=== PATIENT | male | born 1975 | race Caucasian/White ===

== ENCOUNTER 2016-03-23 13:15 | Inpatient (IN) | payer BC, OTHER ==
[~2016-03-23] VITALS: Ht 180.3 cm; Wt 112.6 kg
[2016-03-23] MEDS: PANTOPRAZOLE 40MG INJ (PROTONIX) (C9113) IV SCH (09:00)
[2016-03-23] MEDS ORDERED: ONDANSETRON 4MG/2ML VIAL (J2405) As Ordered ONE (13:59)
[2016-03-23] MEDS ORDERED: MORPHINE 4 MG/ML 1ML SYRINGE As Ordered ONE ×2 (13:59→18:15)
[2016-03-23 14:15] LABS: BASO % 0.4 % (0.0-1.0); EOS # 0.1 K/mm3 (0.0-0.50); EOS % 0.8 % (0.0-3.0); LARGE UNSTAINED CELL # 0.1 K/mm3 (0.0-0.4); LARGE UNSTAINED CELL % 0.8 % (0.0-4.0); LYMPH # 0.7 K/mm3 (1.5-4.5); LYMPH % 5.3 % (24.0-44.0); MEAN CORPUSCULAR HEMOGLOBIN 29.8 pg (27.0-33.0); MEAN CORPUSCULAR HGB CONC 32.7 g/dl (32.0-36.5); MEAN CORPUSCULAR VOLUME 91.2 fl (80.0-96.0); MONO # 0.7 K/mm3 (0.0-0.8); MONO % 5.2 % (0.0-5.0); NEUTROPHILS # 11.4 K/mm3 (1.8-7.7); NEUTROPHILS % 87.4 % (36.0-66.0); PLATELET COUNT, AUTOMATED 336 k/mm3 (150-450); RED CELL DISTRIBUTION WIDTH 12.9 % (11.5-14.5)
[2016-03-23 14:26] LABS: CONTROL LINE MONO INT CTR LINE PRESENT
[2016-03-23 14:32] LABS: ALBUMIN 3.8 GM/DL (3.2-5.2); ALBUMIN/GLOBULIN RATIO 1.27 (1.00-1.93); ALKALINE PHOSPHATASE 36 U/L (45-117); ALT/SGPT 29 U/L (12-78); AMYLASE 95 U/L (25-115); ANION GAP 9 MEQ/L (8-16); AST/SGOT 19 U/L (15-37); BILIRUBIN,DIRECT 0.2 MG/DL (0.0-0.2); BILIRUBIN,TOTAL 0.6 MG/DL (0.2-1.0); BLOOD UREA NITROGEN 17 MG/DL (7-18); CALCIUM LEVEL 8.5 MG/DL (8.5-10.1); CARBON DIOXIDE LEVEL 25 MEQ/L (21-32); CHLORIDE LEVEL 100 MEQ/L (98-107); CREATININE FOR GFR 1.49 MG/DL (0.70-1.30); GLOMERULAR FILTRATION RATE 55.6 (>60); GLUCOSE, FASTING 144 MG/DL (70-105); POTASSIUM SERUM 4.1 MEQ/L (3.5-5.1); SODIUM LEVEL 134 MEQ/L (136-145); TOTAL PROTEIN 6.8 GM/DL (6.4-8.2)
[2016-03-23] MEDS ORDERED: ISOVUE-370 76% 100ML VIAL (Q9967) As Ordered ONE (16:27)
[2016-03-23] MEDS ORDERED: BENZOIN TINCTURE 60 ML BTL (FLOOR STOCK) As Ordered ONE (16:31)
[2016-03-23] MEDS ORDERED: ESCI10TA2 PO (17:44)
[2016-03-23] MEDS ORDERED: IBUP80TA PO (17:44)
[2016-03-23] MEDS ORDERED: METH-107 PO (17:44)
[2016-03-23] MEDS ORDERED: MORPHINE 4 MG/ML 1ML SYRINGE IV PRN (18:15)
[2016-03-23] MEDS ORDERED: ONDANSETRON 4MG/2ML VIAL (J2405) IV PRN (18:15)
[2016-03-23] MEDS ORDERED: ACETAMINOPHEN TAB 650MG DOSE (2X325MG) PO PRN (18:15)
[2016-03-23] MEDS: NS 1,000 ML IV SCH (19:00)
--- NOTE | 2016-03-23 19:46 | EDDOCDS ---
Nurse's Notes [facility] Name: Ubaldo Garcia Age: 40 yrs Sex: Male : 1975 Arrival Date: 03/23/2016 Time: 13:15 Bed 3 Private MD: NO PRIMARY PHYSICIAN, . 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 Adult Sepsis Screening: The patient does not have new or worsening altered mentation. Patient's respiratory rate is less than 22. Systolic blood pressure is greater than 100. Patient has a qSOFA score of 0- Negative Sepsis Screen. Suicide/Homicide risk assessment- the patient denies having any suicidal and/or homicidal ideations and does not present with any other emotional, behavioral or mental health complaints. Status: Patient is not a service or work dispatcher or dependent. Transition of care: patient was not received from another setting of care. 13:41 Acuity: WILL Level 4 [facility] 13:41 Method Of Arrival: Walkin/Carried/Asstd [facility] 13:53 Acuity level changed due to complexity of care. srm 13:53 Acuity: WILL Level 3 srm Triage Assessment: 13:46 General: Appears in no apparent distress, uncomfortable, Behavior is appropriate for [facility] age, cooperative. Pain: Location: anterior aspect of right lateral abdomen and posterior aspect of right lateral abdomen Pain currently is 8 out of 10 on a pain scale. HIV screening NA for this visit Offered previously. Respiratory: Airway is patent Respiratory effort is even, unlabored, Respiratory pattern is regular, symmetrical. Musculoskeletal: Range of motion intact in all extremities. Historical: - Allergies: no known allergies; - Home Meds: 1. Lexapro 10 mg Oral tab 1 tab once daily (Last dose: 03/21/2016) 2. ibuprofen 800 mg Oral tab every 4 hours (Last dose: 03/23/2016 11:00) 3. methocarbamol 500 mg Oral tab as needed (Last dose: 03/23/2016 08:00) - PMHx: none; - PSHx: Hernia repair- Right inguinal; - Social history: Smoking status: Patient states former smoker of tobacco. No barriers to communication noted. - Family history: Not pertinent. - : The pt / caregiver states he / she is not on anticoagulants. Home medication list is obtained from. - Exposure Risk Screening:: None identified. Screenin:39 Screening information is obtained from the patient. Primary language is Urdu. Fall jam1 risk: No risks identified. Assistance ADL's: requires no assistance with activities of daily living. Abuse/DV Screen: The patient / caregiver reports he/she is: not in a situation that causes fear, pain or injury. Nutritional screening: No deficits noted. Exposure Risk Screening: None identified. Advance Directives: Currently, there is no health care proxy. There is no active DNR order. There is no living will. There is no Power of Community Support Specialist. Advance directive information has not previously been placed in an [facility] medical record. Further advance directive information is declined. home support is adequate. Assessment: 14:02 General: Appears in no apparent distress, uncomfortable, Behavior is appropriate for dsf age, cooperative. Pain: Location: anterior aspect of left lateral abdomen, left upper quadrant and left lower quadrant Pain currently is 8 out of 10 on a pain scale. Quality of pain is described as sharp, Pain began 2-3 days ago Aggravated by coughing, deep breathing and movement. Neurological: Level of Consciousness is awake, alert, Oriented to person, place, time. Cardiovascular: Capillary refill < 3 seconds Heart tones S1 S2 present. Respiratory: Airway is patent Respiratory effort is even, unlabored, Respiratory pattern is regular, symmetrical, Breath sounds are clear bilaterally. GI: Abdomen is non- distended Bowel sounds present X 4 quads. Abd is soft X 4 quads Abd is tender to palpation in left upper quadrant and left lower quadrant. Derm: Skin is pink, warm & dry. 15:02 Adult Sepsis Screening: The patient does not have new or worsening altered mentation. dsf Patient's respiratory rate is less than 22. Systolic blood pressure is greater than 100. Patient has a qSOFA score of 0- Negative Sepsis Screen. General: Appears in no apparent distress, Behavior is appropriate for age, cooperative. Pain: Location: left upper quadrant and left lower quadrant. Cardiovascular: Capillary refill < 3 seconds. Respiratory: Airway is patent Respiratory effort is even, unlabored, Respiratory pattern is regular, symmetrical. Derm: Skin is pink, warm & dry. 16:25 General: pt making snoring noises, pale, diaphoretic in wheel chair. lips pale, arms srm stiff left leg out straight and stiff. pt not responsive to nurse. voice. episode lasted approximately 30 secs before coming too. pt doesn't remember episodes. oxygen applied immediately. bp 135/62 hr 118 just after episodes. pt moved to room 11 in [facility] ed. after arriving to room 11 pt became pale and extremely diaphoretic in wheelchair , no unresponsiveness at this time. pt assisted to stretcher dr perera at bedside. 16:52 General: Appears in no apparent distress, comfortable, Behavior is cooperative. Pain: bcj Location: abdomen Pain currently is 5 out of 10 on a pain scale. Cardiovascular: Rhythm is sinus rhythm Chest pain is denied. Respiratory: Airway is patent Respiratory effort is even, unlabored, Respiratory pattern is regular. Derm: Skin is intact, Skin is clammy, Skin is pale, pink, Skin temperature is cool. 18:08 Adult Sepsis Screening: The patient does not have new or worsening altered mentation. bcj Patient's respiratory rate is less than 22. Systolic blood pressure is greater than 100. Patient has a qSOFA score of 0- Negative Sepsis Screen. General: Appears. 18:12 General: Appears in no apparent distress, comfortable, Behavior is cooperative. Pain: bcj Location: posterior aspect of left lateral abdomen and left lower quadrant. Cardiovascular: Rhythm is sinus rhythm. GI: Abdomen is flat, non- distended. Derm: Skin is pink, warm & dry. 19:16 General: Appears in no apparent distress, comfortable, Behavior is appropriate for age, mlc cooperative, pleasant. Pain: Location: anterior aspect of left lateral abdomen and posterior aspect of left lateral abdomen. Neurological: Level of Consciousness is awake, alert, obeys commands, Oriented to person, place, time. Cardiovascular: Capillary refill < 3 seconds Heart tones S1 S2 present Rhythm is sinus rhythm. Respiratory: Airway is patent Respiratory effort is even, unlabored, Respiratory pattern is regular, Breath sounds are clear bilaterally. GI: Abdomen is non- distended Bowel sounds present X 4 quads. Derm: Skin is pink, warm & dry. 19:43 General: Appears in no apparent distress, comfortable, Behavior is cooperative. Pain: mlc Pain currently is 5 out of 10 on a pain scale. Neurological: Level of Consciousness is awake, alert, Oriented to person, place, time. Respiratory: Airway is patent Respiratory effort is even, unlabored, Respiratory pattern is regular. Vital Signs: 13:18 BP 132 / 67; Pulse 108; Resp 18 S; Temp 96.3(O); Pulse Ox 93% on R/A; Weight 108.86 kg gr2 (R); Height 5 ft. 11 in. (180.34 cm) (R); Pain 8/10; 14:05 Pulse Ox 97% ; jam1 14:38 BP 110 / 62; Pulse 101; Resp 20; Temp 97.2; Pulse Ox 97% ; Pain 7/10; jam1 14:45 Pain 6/10; dsf 15:32 BP 132 / 67; Pulse 95; Resp 20; Temp 97.6; Pulse Ox 97% ; Pain 5/10; jam1 16:31 BP 149 / 86 (auto/); bcj 16:34 Pulse 90 MON; bcj 16:37 BP 153 / 64 (auto/); bcj 16:37 Pulse 84 MON; bcj 16:47 BP 146 / 72 (auto/); bcj 16:47 Pulse 80 MON; bcj 16:52 BP 135 / 58 (auto/); bcj 16:52 Pulse 80 MON; Pulse Ox 95% ; bcj 17:27 BP 130 / 78 (auto/); bcj 17:28 Pulse Ox 98% ; bcj 17:45 BP 133 / 79 (auto/); bcj 17:45 Pulse 92 MON; Pulse Ox 98% ; bcj 18:00 BP 142 / 74 (auto/); bcj 18:00 Pulse 94 MON; Pulse Ox 99% ; bcj 18:15 Pulse 104 MON; Pulse Ox 84% ; mlc 18:15 BP 141 / 65 (auto/); mlc 18:30 Pulse 99 MON; Pulse Ox 100% ; mlc 18:30 BP 146 / 65 (auto/); mlc 18:45 BP 152 / 75 (auto/); mlc 18:45 Pulse 100 MON; Pulse Ox 100% ; mlc 19:00 BP 128 / 69 (auto/); mlc 19:00 Pulse 102 MON; Pulse Ox 100% ; mlc 19:43 BP 137 / 70; Pulse 101; Resp 18; Temp 96.8(O); Pulse Ox 98% on R/A; Pain 5/10; mlc 13:18 Body Mass Index 33.47 (108.86 kg, 180.34 cm) gr2 Vitals: 13:18 Log In Time: March 23, 2016 at 13:18. gr2 ED Course: 13:17 Patient visited by Kevin Hughes. gr2 13:17 NO PRIMARY PHYSICIAN, . is Private Physician. gr2 13:17 Patient moved to Waiting gr2 13:21 Patient visited by Kevin Hughes. gr2 13:21 Patient moved to Pre RCE gr2 13:43 Triage Initiated cjh 13:46 ice applied. cj 13:50 Coni Mackey PA-C is PHCP. ef1 13:50 Ambrocio Perera MD is Attending Physician. ef1 13:50 Patient moved to I4 / M4 ef1 13:51 Patient visited by Coni Mackey PA-C. ef1 14:04 Inserted saline lock: 18 gauge in right antecubital area The patient tolerated the dsf procedure well. 14:04 Monoscreen Sent. dsf 14:04 Amylase Sent. dsf 14:04 Basic Metabolic Profile Sent. dsf 14:04 CBC with Diff Sent. dsf 14:04 Lipase Sent. dsf 14:05 Patient visited by Kelly Leal RN. dsf 14:05 Liver Profile Sent. dsf 14:06 Patient visited by Jocelynn Bynum RN. srm 14:40 Patient visited by Coni Mackey PA-C. ef1 14:52 Patient name changed from Ubaldo\S\M\S\Garcia\S\ to Ubaldo\S\ \S\Garcia. EDMS 14:53 [facility] Payment Agreement was scanned into [employer] and attached to record. lg 14:55 Patient visited by Coni Mackey PA-C. ef1 15:02 Patient visited by Kelly Leal RN. dsf 15:29 Patient visited by Coni Mackey PA-C. ef1 16:11 Patient visited by Coni Mackey PA-C. ef1 16:25 Patient moved to [facility] 16:29 Patient visited by Ambrocio Perera MD. br1 16:34 Resting quietly. awaiting re-evaluation by ER physician. bcj 16:34 The patient / caregiver is instructed regarding the plan of care and ED course. Patient bcj has correct armband on for positive identification. Bed in low position. Call light in reach. Side rails up X2. bullet swaging machine adjuster on. Pulse ox on. NIBP on. 16:34 EKG done. (by ED staff). Reviewed by Coni Mackey PA-C. nb2 16:34 IV is intact. bcj 16:35 Patient visited by Jocelynn Bynum, LUIZA. srm 16:36 Patient visited by Gianna Mcgrath. nb2 16:41 Patient visited by Varsha Ayala PCA. rs6 16:55 Patient visited by Lawrence Trejo, LUIZA. bcj 17:26 [facility] 18:14 No apparent distress. Resting quietly. Awaiting bed assignment. bcj 18:14 IV is intact. bcj 18:15 Patient visited by Lawrence Trejo, LUIZA. bcj 18:26 Jemal Cadet is Hospitalizing Provider. br1 19:16 Danielle Briceno,RN is Primary Nurse. mlc 19:16 No procedures done that require assistance. mlc 19:18 Patient visited by Danielle Briceno RN. mlc 19:37 Attending Physician role handed off by Ambrocio Perera MD cs11 19:37 Pollo Gracia DO is Attending Physician. cs11 Administered Medications: 13:52 CANCELLED (Duplicate Order): ketorolac 30 mg IVP once ef1 14:02 Drug: NS 0.9% 1000 ml [sodium chloride 0.9 % intravenous solution] Route: IV; Rate: srm bolus; Site: right antecubital; 14:02 Drug: Ondansetron 4 mg [ondansetron HCl 2 mg/mL intravenous solution (2 mL)] Route: srm IVP; Site: right antecubital; 14:03 Drug: morphine 4 mg [morphine 4 mg/mL intravenous cartridge (1 mL)] Route: IVP; Site: [facility] right antecubital; 14:45 Follow up: Pain 6/10 Adult; see charted VS dsf 16:50 Drug: NS 0.9% 1000 ml [sodium chloride 0.9 % intravenous solution] Route: IV; Rate: bcj bolus; Site: left antecubital; 18:21 Drug: morphine 4 mg [morphine 4 mg/mL intravenous cartridge (1 mL)] Route: IVP; Site: ja5 right antecubital; Intake: Order Results: Lab Order: Amylase; SPEC'M 03/23/16 14:00 Test: AMYLASE; Value: 95; Range: 25-115; Units: U/L; Status: F Test: TROPONIN I; Range: < 0.10; Units: NG/ML; Status: I Lab Order: Basic Metabolic Profile; SPEC'M 03/23/16 14:00 Test: GLUCOSE, FASTING; Value: 144; Range: 70-105; Abnormal: Above high normal; Units: MG/DL; Status: F Test: BLOOD UREA NITROGEN; Value: 17; Range: 7-18; Units: MG/DL; Status: F Test: CREATININE FOR GFR; Value: 1.49; Range: 0.70-1.30; Abnormal: Above high normal; Units: MG/DL; Status: F Test: SODIUM LEVEL; Range: 136-145; Units: MEQ/L; Status: I Test: POTASSIUM SERUM; Range: 3.5-5.1; Units: MEQ/L; Status: I Test: CHLORIDE LEVEL; Range: 98-107; Units: MEQ/L; Status: I Test: CARBON DIOXIDE LEVEL; Range: 21-32; Units: MEQ/L; Status: I Test: ANION GAP; Range: 8-16; Units: MEQ/L; Status: I Test: CALCIUM LEVEL; Range: 8.5-10.1; Units: MG/DL; Status: I Test: GLOMERULAR FILTRATION RATE; Value: 55.6; Range: >60; Abnormal: Below low normal; Status: F Test: SODIUM LEVEL; Value: 134; Range: 136-145; Abnormal: Below low normal; Units: MEQ/L; Status: F Test: POTASSIUM SERUM; Value: 4.1; Range: 3.5-5.1; Units: MEQ/L; Status: F Test: CHLORIDE LEVEL; Value: 100; Range: 98-107; Units: MEQ/L; Status: F Test: CARBON DIOXIDE LEVEL; Value: 25; Range: 21-32; Units: MEQ/L; Status: F Test: ANION GAP; Value: 9; Range: 8-16; Units: MEQ/L; Status: F Test: CALCIUM LEVEL; Value: 8.5; Range: 8.5-10.1; Units: MG/DL; Status: F Test Note: ; Units are mL/min/1.73 m2 Chronic Kidney Disease Staging per NKF: Stage I & II GFR >=60 Normal to Mildly Decreased Stage III GFR 30-59 Moderately Decreased Stage IV GFR 15-29 Severely Decreased Stage V GFR <15 Very Little GFR Left ESRD GFR <15 on [employer] Lab Order: CBC with Diff; SPEC'M 03/23/16 14:00 Test: WHITE BLOOD COUNT; Value: 13.0; Range: 4.0-10.0; Abnormal: Above high normal; Units: K/mm3; Status: F Test: RED BLOOD COUNT; Value: 4.30; Range: 4.30-6.10; Units: M/mm3; Status: F Test: HEMOGLOBIN; Value: 12.8; Range: 14.0-18.0; Abnormal: Below low normal; Units: g/dl; Status: F Test: HEMATOCRIT; Value: 39.2; Range: 42.0-52.0; Abnormal: Below low normal; Units: %; Status: F Test: MEAN CORPUSCULAR VOLUME; Value: 91.2; Range: 80.0-96.0; Units: fl; Status: F Test: MEAN CORPUSCULAR HEMOGLOBIN; Value: 29.8; Range: 27.0-33.0; Units: pg; Status: F Test: MEAN CORPUSCULAR HGB CONC; Value: 32.7; Range: 32.0-36.5; Units: g/dl; Status: F Test: RED CELL DISTRIBUTION WIDTH; Value: 12.9; Range: 11.5-14.5; Units: %; Status: F Test: PLATELET COUNT, AUTOMATED; Value: 336; Range: 150-450; Units: k/mm3; Status: F Test: NEUTROPHILS %; Value: 87.4; Range: 36.0-66.0; Abnormal: Above high normal; Units: %; Status: F Test: LYMPH %; Value: 5.3; Range: 24.0-44.0; Abnormal: Below low normal; Units: %; Status: F Test: MONO %; Value: 5.2; Range: 0.0-5.0; Abnormal: Above high normal; Units: %; Status: F Test: EOS %; Value: 0.8; Range: 0.0-3.0; Units: %; Status: F Test: BASO %; Value: 0.4; Range: 0.0-1.0; Units: %; Status: F Test: LARGE UNSTAINED CELL %; Value: 0.8; Range: 0.0-4.0; Units: %; Status: F Test: NEUTROPHILS #; Value: 11.4; Range: 1.8-7.7; Abnormal: Above high normal; Units: K/mm3; Status: F Test: LYMPH #; Value: 0.7; Range: 1.5-4.5; Abnormal: Below low normal; Units: K/mm3; Status: F Test: MONO #; Value: 0.7; Range: 0.0-0.8; Units: K/mm3; Status: F Test: EOS #; Value: 0.1; Range: 0.0-0.50; Units: K/mm3; Status: F Test: BASO #; Value: 0.0; Range: 0.0-0.2; Units: K/mm3; Status: F Test: LARGE UNSTAINED CELL #; Value: 0.1; Range: 0.0-0.4; Units: K/mm3; Status: F Lab Order: Lipase; SPEC' 03/23/16 14:00 Test: LIPASE; Value: 259; Range: 73-393; Units: U/L; Status: F Lab Order: Liver Profile; [facility]' 03/23/16 14:00 Test: AST/SGOT; Value: 19; Range: 15-37; Units: U/L; Status: F Test: ALT/SGPT; Value: 29; Range: 12-78; Units: U/L; Status: F Test: ALKALINE PHOSPHATASE; Value: 36; Range: 45-117; Abnormal: Below low normal; Units: U/L; Status: F Test: BILIRUBIN,TOTAL; Value: 0.6; Range: 0.2-1.0; Units: MG/DL; Status: F Test: BILIRUBIN,DIRECT; Value: 0.2; Range: 0.0-0.2; Units: MG/DL; Status: F Test: TOTAL PROTEIN; Value: 6.8; Range: 6.4-8.2; Units: GM/DL; Status: F Test: ALBUMIN; Value: 3.8; Range: 3.2-5.2; Units: GM/DL; Status: F Test: ALBUMIN/GLOBULIN RATIO; Value: 1.27; Range: 1.00-1.93; Status: F Lab Order: Monoscreen; SPEC'M 03/23/16 14:00 Test: MONO SCRN; Value: NEGATIVE; Range: NEGATIVE; Status: F Lab Order: TROPONIN; SPEC'M 03/23/16 14:00 Test: TROPONIN I; Value: < 0.02; Range: < 0.10; Units: NG/ML; Status: F Test Note: ; Troponin I Reference Interval for [employer] LOCI: 99th Percentile= 0.00-0.045 ng/ml Risk Stratification: <= 0.10 ng/ml Decreased Risk for Adverse Clinical Events. 0.10-1.50 ng/ml Increased Risk for Adverse Clinical Events. Evaluation of additional criterion and/or repeat testing in 2-6 hours is suggested to rule out myocardial damage. >= 1.50 ng/ml Indicative of Myocardial Injury. Outcome: 18:26 Decision to Hospitalize by Provider. br1 19:16 CT Study completed. [facility] 19:38 Discharge Assessment: Patient awake, alert and oriented x 3. No cognitive and/or mlc functional deficits noted. Patient verbalized understanding of disposition instructions. patient administered narcotics - yes. Patient was admitted to the hospital or transferred to another facility. The following High Risk Discharge criteria are identified: None. Admitted to ICU accompanied by nurse, accompanied by tech, via stretcher, on monitor, with chart. Condition: stable. Admission hand-off: Report called to LUIZA Torre. Property :Personal belongings accompany Pt. 19:45 Patient left the ED. [facility] Signatures: Dispatcher [employer] EDLawrence Medrano RN RN bcj Michelson, Staci, RN RN srm Murphy, Jane, [employer] jam1 Flaco Cardenas, Reg Reg lg Ambrocio Perera MD MD br1 Coni Mackey, PA-C PA-C efKelly Lara,Xochitl Prasad RN, RN RN pml Hafner, Jane, RN RN [facility] Vishal, Pollo Huff, DO DO cs11 Kevin Hughes gr2 Danielle Briceno RN RN [facility] Varsha Ayala, [employer]ER [employer] rs6 Gianna Mcgrath nb2 Rubia Ortez,RN RN ja5 Corrections: (The following items were deleted from the chart) 16:41 16:25 General: pt making snoring noises, pale, diaphoretic in wheel chair. ;lips pale. srm pt not responsive to nurse. voice. episode lasted approximately 30 secs before coming too. pt doesn't remember epsidoe. oxygen applied immediately. bp 135/62 hr 118 just after episodes. pt moved to room 11 in [facility]. after arriving to room 11 pt became pale and extremely diaphoretic in wheelchair , no unresponsiveness at this time. pt assisted to stretcher dr perera at bedside. srm 18:32 16:50 TROPONIN+LAB sent. lyudmilaj EDMS MTDD
--- NOTE | 2016-03-23 19:46 | EDDOCDS ---
Physician Documentation [facility] Name: Ubaldo Garcia Age: 40 yrs Sex: Male : 1975 Arrival Date: 03/23/2016 Time: 13:15 Bed 3 Private MD: NO PRIMARY PHYSICIAN, . Disposition: 03/23/16 18:26 Hospitalization ordered by Jemal Cadet for Inpatient Admission. Preliminary diagnosis is Disorders of retroperitoneum - Retroperitoneal and flank hematoma. - Bed requested for M ICU. - Status is Inpatient Admission. mlc - Condition is Stable. - Problem is new. - Symptoms are unchanged. Historical: - Allergies: no known allergies; - Home Meds: 1. Lexapro 10 mg Oral tab 1 tab once daily (Last dose: 03/21/2016) 2. ibuprofen 800 mg Oral tab every 4 hours (Last dose: 03/23/2016 11:00) 3. methocarbamol 500 mg Oral tab as needed (Last dose: 03/23/2016 08:00) - PMHx: none; - PSHx: Hernia repair- Right inguinal; - Social history: Smoking status: Patient states former smoker of tobacco. No barriers to communication noted. - Family history: Not pertinent. - : The pt / caregiver states he / she is not on anticoagulants. Home medication list is obtained from. - Exposure Risk Screening:: None identified. Vital Signs: 03/23 13:18 BP 132 / 67; Pulse 108; Resp 18 S; Temp 96.3(O); Pulse Ox 93% on R/A; Weight 108.86 kg gr2 / 240 lbs (R); Height 5 ft. 11 in. (180.34 cm) (R); Pain 8/10; 14:05 Pulse Ox 97% ; jam1 14:38 BP 110 / 62; Pulse 101; Resp 20; Temp 97.2; Pulse Ox 97% ; Pain 7/10; jam1 14:45 Pain 6/10; dsf 15:32 BP 132 / 67; Pulse 95; Resp 20; Temp 97.6; Pulse Ox 97% ; Pain 5/10; jam1 16:31 BP 149 / 86 (auto/); bcj 16:34 Pulse 90 MON; bcj 16:37 BP 153 / 64 (auto/); bcj 16:37 Pulse 84 MON; bcj 16:47 BP 146 / 72 (auto/); bcj 16:47 Pulse 80 MON; bcj 16:52 BP 135 / 58 (auto/); bcj 16:52 Pulse 80 MON; Pulse Ox 95% ; bcj 17:27 BP 130 / 78 (auto/); bcj 17:28 Pulse Ox 98% ; bcj 17:45 BP 133 / 79 (auto/); bcj 17:45 Pulse 92 MON; Pulse Ox 98% ; bcj 18:00 BP 142 / 74 (auto/); bcj 18:00 Pulse 94 MON; Pulse Ox 99% ; bcj 18:15 Pulse 104 MON; Pulse Ox 84% ; mlc 18:15 BP 141 / 65 (auto/); mlc 18:30 Pulse 99 MON; Pulse Ox 100% ; mlc 18:30 BP 146 / 65 (auto/); mlc 18:45 BP 152 / 75 (auto/); mlc 18:45 Pulse 100 MON; Pulse Ox 100% ; mlc 19:00 BP 128 / 69 (auto/); mlc 19:00 Pulse 102 MON; Pulse Ox 100% ; mlc 19:43 BP 137 / 70; Pulse 101; Resp 18; Temp 96.8(O); Pulse Ox 98% on R/A; Pain 5/10; mlc 13:18 Body Mass Index 33.47 (108.86 kg, 180.34 cm) gr2 MDM: 13:52 NS 0.9% 1000 ml IV at bolus once ordered. ef1 13:52 Ondansetron 4 mg IVP once ordered. ef1 13:52 IV Saline Lock ordered. ef1 13:52 Undress patient appropriately for examination ordered. ef1 13:53 Amylase Ordered. EDMS 13:53 Basic Metabolic Profile Ordered. EDMS 13:53 CBC with Diff Ordered. EDMS 13:53 Lipase Ordered. EDMS 13:53 Liver Profile Ordered. EDMS 13:53 Monoscreen Ordered. EDMS 13:53 CT ABD & PELVIS: No Contrast Ordered. EDMS 13:53 morphine 4 mg IVP once ordered. ef1 13:53 Pulse ox spot check ordered. ef1 13:53 NOTHING BY MOUTH+DIET ordered. EDMS 13:54 Rib Unilat W/PA Chest Only Ordered. EDMS 14:17 Financial registration complete. lg 14:47 Basic Metabolic Profile Reviewed. ef1 14:47 CBC with Diff Reviewed. ef1 14:47 Liver Profile Reviewed. ef1 14:47 Amylase Reviewed. ef1 14:47 Lipase Reviewed. ef1 14:47 Monoscreen Reviewed. ef1 14:53 [facility] [place] Payment Agreement was scanned into [employer] and attached to record. lg 16:14 CT Chest With Contrast Ordered. EDMS 16:14 CT ABD & PELVIS: IV Contrast Only Ordered. EDMS 16:19 morphine 4 mg IVP once ordered. ef1 16:28 ECG WITH READING ER PHYS+CARDIAG ordered. EDMS 16:33 NS 0.9% 1000 ml IV at bolus once ordered. br1 16:34 Table Games Dual Rate Supervisor/Pulse Ox/q 30 min VS ordered. br1 17:11 Type & Screen Ordered. EDMS 17:11 Type and Cross, Packed Cells Ordered. EDMS 17:27 ED course: Assumed care of patient. Normotemsive, feeling better at this time. br1 Discussed with Dr. Cadet imaging findings. Being bolused with normal saline. Dr. Cadet recommends holding on blood transfusion at this time, on his way to see patient.. 17:31 BED REQUEST+ADM ordered. EDMS 18:29 Admission / Observation Status ordered. EDMS 18:29 CLEAR LIQUIDS DIET ordered. EDMS 18:30 COMPLETE BLOOD COUNT Ordered. EDMS 18:32 TROPONIN Ordered. EDMS 19:33 COMPLETE BLOOD COUNT Ordered. EDMS 19:33 BASIC METABOLIC PROFILE Ordered. EDMS Administered Medications: 13:52 CANCELLED (Duplicate Order): ketorolac 30 mg IVP once ef1 14:02 Drug: NS 0.9% 1000 ml [sodium chloride 0.9 % intravenous solution] Route: IV; Rate: srm bolus; Site: right antecubital; 14:02 Drug: Ondansetron 4 mg [ondansetron HCl 2 mg/mL intravenous solution (2 mL)] Route: srm IVP; Site: right antecubital; 14:03 Drug: morphine 4 mg [morphine 4 mg/mL intravenous cartridge (1 mL)] Route: IVP; Site: [facility] right antecubital; 14:45 Follow up: Pain 6/10 Adult; see charted VS dsf 16:50 Drug: NS 0.9% 1000 ml [sodium chloride 0.9 % intravenous solution] Route: IV; Rate: bcj bolus; Site: left antecubital; 18:21 Drug: morphine 4 mg [morphine 4 mg/mL intravenous cartridge (1 mL)] Route: IVP; Site: [facility] right antecubital; Signatures: Dispatcher [employer] EDLawrence Medrano, RN RN Flaco Moss, Ambrocio Amaral lg, MD MD br1 Coni Mackey, JOEL PANatty ef1 Margi FrostRN RN [facility] Danielle Briceno RN RN mlc Andrews, Steven, RN RN sa Michelson, Staci RN srm Fuller, Desiree RN dsf Anderson, Jessica RN ja5 The chart was reviewed and I authenticate all verbal orders and agree with the evaluation and treatment provided.Corrections: (The following items were deleted from the chart) 13:52 13:52 ketorolac 30 mg IVP once ordered. ef1 ef1 17:26 17:16 Transfuse PRBC's 2 units, ensure PRBCs ordered in lab ordered. br1 br1 18:32 16:26 TROPONIN+LAB ordered. EDMS EDMS 19:31 18:29 TYPE & SCREEN ordered. EDMS EDMS Attachments: 14:53 [facility] [place] Payment Agreement lg MTDD
[2016-03-23 20:00] VITALS: BP 127/56
[2016-03-23] MEDS: ESCITALOPRAM OXALATE 10 MG TAB (LEXAPRO) PO SCH (20:38)
[2016-03-23] MEDS: DOCUSATE SODIUM 100 MG CAP PO SCH (20:38)
[2016-03-23 22:00] VITALS: BP 129/59
[2016-03-23 22:15] LABS: MEAN CORPUSCULAR HEMOGLOBIN 30.3 pg (27.0-33.0); MEAN CORPUSCULAR HGB CONC 33.1 g/dl (32.0-36.5); MEAN CORPUSCULAR VOLUME 91.7 fl (80.0-96.0); WHITE BLOOD COUNT 18.9 K/mm3 (4.0-10.0)
[2016-03-24] VITALS (13 sets, daily range): BP systolic 122–144; BP diastolic 58–74
[2016-03-24] MEDS: MORPHINE 2 MG/ML 1ML SYRINGE IV PRN ×3 (00:05→22:12)
[2016-03-24] MEDS: NS 1,000 ML IV SCH (01:48)
[2016-03-24 05:05] LABS: MEAN CORPUSCULAR HGB CONC 33.1 g/dl (32.0-36.5); MEAN CORPUSCULAR VOLUME 90.6 fl (80.0-96.0); RED CELL DISTRIBUTION WIDTH 13.1 % (11.5-14.5); WHITE BLOOD COUNT 14.6 K/mm3 (4.0-10.0)
[2016-03-24 05:07] LABS: ANION GAP 9 MEQ/L (8-16); BLOOD UREA NITROGEN 15 MG/DL (7-18); CALCIUM LEVEL 7.4 MG/DL (8.5-10.1); CARBON DIOXIDE LEVEL 24 MEQ/L (21-32); CHLORIDE LEVEL 103 MEQ/L (98-107); CREATININE FOR GFR 1.36 MG/DL (0.70-1.30); GLOMERULAR FILTRATION RATE > 60.0 (>60); GLUCOSE, FASTING 112 MG/DL (70-105); POTASSIUM SERUM 4.1 MEQ/L (3.5-5.1); SODIUM LEVEL 136 MEQ/L (136-145)
[2016-03-24] MEDS: DOCUSATE SODIUM 100 MG CAP PO SCH ×2 (08:49→21:30)
[2016-03-24] MEDS: PANTOPRAZOLE 40MG INJ (PROTONIX) (C9113) IV SCH (08:50)
--- NOTE | 2016-03-24 08:51 | REP ---
CT study of the chest with IV contrast: History: Trauma. CT contrast dose: 100 ml of Isovue [address] findings: The lung windows show no evidence of pneumothorax. There is a small left pleural effusion consistent with hydrothorax or hemothorax on the left side. There is some pericardial thickening inferiorly consistent with a small pericardial effusion. Some edema or infiltration of the epicardial fat is observed. No mediastinal hematoma is seen. The thoracic aorta enhances homogeneously and is normal in caliber and contour. No pulmonary arterial defect or other vascular abnormality is observed. There is a large left flank and left retroperitoneal hematoma displacing the kidney supero-medially and extending off the bottom edge of the imaging field of view. There is some hyperdense material within the central portion of the hematoma at the bottom of the imaging field of view consistent with active extravasation of contrast opacified blood. Bone window settings demonstrate an intact bony calvarium. No rib or other fracture is seen. The spleen appears to be intact. There is extraperitoneal blood extending or dissecting along the diaphragmatic root into the diaphragm itself. There may be some hemoperitoneum as well in the left upper quadrant. No free air is appreciated. Impression: Large left flank, predominantly extraperitoneal hematoma with active extravasation of contrast opacified blood (evidence of active bleeding). There is edema in the epicardial fat and a small amount of fluid is seen in the pericardium. No pulmonary contusion is seen. There is a small left pleural effusion. No other intrathoracic abnormality. Signed by Elias Salazar MD 03/24/2016 09:05 A
--- NOTE | 2016-03-24 08:55 | REP ---
CT study of the abdomen and pelvis with IV but without oral contrast: History: Trauma. CT contrast dose: 100 ml of Isovue 370 is administered. Comparison is made with the study done earlier without contrast. CT findings: There is a very large hematoma in the left flank, extraperitoneal and retroperitoneal extension. There is pericolic gutter fluid consistent with some degree of hemoperitoneum as well. There is evidence of active extravasation of contrast opacified blood within the hematoma in the left flank. Kidney is displaced anteriorly and superiorly. Hematoma extends along the pelvic sidewall displacing the urinary bladder to the right. There is a small quantity of hemoperitoneum in the right lower quadrant. There is some fluid in the space of Retzius between the urinary bladder and the anterior abdominal wall. There are inguinal hernia clips on the right. No hepatic or splenic laceration is seen. No adrenal lesion is observed. The kidneys enhance symmetrically and no renal laceration is seen. The gallbladder is unremarkable. Bone window settings show no pelvic, hip, lumbar spine fracture. No rib fracture is seen. The hematoma extends over a craniocaudal span of approximately 32 cm. It measures 16 cm anterior to posterior by 18.5 cm medial to lateral. Impression: 32 x 18 x 16 cm hematoma in the left flank, left retroperitoneum, and left pelvic sidewall region. There is active extravasation at the level of the bottom of the rib cage in the top of the hematoma. The abdominal viscera appear intact, although there is displacement of the left kidney and urinary bladder. There is a small quantity of hemoperitoneum. No fracture is seen. Signed by Elias Salazar MD 03/24/2016 09:05 A
--- NOTE | 2016-03-24 11:11 | HPE ---
DATE OF ADMISSION: 03/23/2016 ADMISSION DIAGNOSIS: Extensive retroperitoneal and abdominal wall hematoma, spontaneous, associated with power lifting. 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 On the past Friday, that would be March 17, he noticed what he described as a little tweak in the flank about at the edge of the rib cage. He described this as a sensation of relatively mild muscle pull while lifting and so he laid off his exercise program for a day or two. He was doing some heavy lifting on evening, March 21. He reports that he was well warmed up and was in the third set of repetitions when he felt a definite pull and felt something give in his left flank at the inferior edge of his rib cage. He stopped lifting at that point. He went home and used some warm compresses or cold compresses and some Bengay and rested. On Friday, he had some persistent discomfort in his left flank and today the he noted more pain. This started in the morning with pain that extended up and down his left flank and also down into his left lower quadrant. Later in the day when he tried getting off the sofa, he noticed a lot more discomfort. He presented to the emergency department at 01:15 in the afternoon. He was evaluated with some basic blood work. He was mildly tachycardiac when he first presented. He had a CT scan of the abdomen and pelvis which showed a definite hematoma involving the left flank muscles. This extended somewhat into the retroperitoneum posteriorly and also tracked down through the abdominal wall toward the pelvis. He subsequently had a CT scan of the chest as well as a CT scan of the abdomen and pelvis with contrast. This confirmed the hematoma. There was no sign of hematoma or free fluid up in the chest. On the CT with IV contrast, there was a small blush or actually a few small spots of contrast noted in the center of the hematoma in his left flank. The radiologist felt this was consistent with some ongoing bleeding. The patient developed some diaphoresis and had a transient episode of unresponsiveness while sitting in a wheelchair following his scan. I was asked to evaluate the patient and he is now being admitted to the intensive care unit for an attempt at nonoperative management of his large hematoma. ALLERGIES: The patient denies any drug allergies. HOME MEDICATIONS: Include Lexapro 10 mg by mouth once daily. He uses testosterone replacement therapy. He has been using some occasional ibuprofen 800 mg as needed and also has used some methocarbamol 500 mg that was provided for his dog, but was still available so he took one for his own discomfort. PAST MEDICAL HISTORY: Negative other than his hypotestosteronemia. PAST SURGICAL HISTORY: He has had a right inguinal hernia back in 2004. 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 He is a former smoker, but quit some years ago. He denies excessive alcohol. FAMILY HISTORY: Reveals no history of bleeding disorder or aneurysm. REVIEW OF SYSTEMS: Reveals no history of chest pain or palpitations. He denies any shortness of breath or wheezing. He has had no history of seizure, stroke or chronic severe headaches. He has no history of diabetes or hypothyroidism. He denies any abnormal bleeding following his hernia or when he had his wisdom teeth treated. He does report some minor musculoskeletal strains in the past associated with his hobby of lifting. There is no history of deep venous thrombosis (DVT) or pulmonary embolus. PHYSICAL EXAMINATION: Reveals a muscular man lying quietly on the stretcher in the emergency department. He has multiple tattoos of the upper extremities. He is alert, oriented and cooperative. His pulse is in the 80s. His most recent blood pressure is approximately 135 systolic. He was afebrile on presentation. His weight is listed as 109 kg with a height of 71 inches. Skin is warm and dry at this point. Sclerae are anicteric. Mucous membranes are moist. Neck is supple. Heart: Exam shows a regular rate and rhythm in the 80s. The lungs are clear to auscultation. The abdomen shows a muscular abdominal wall. He has some tenderness on palpation beginning in the region of the left lateral costal margin and extending down into the left lower quadrant at about the midclavicular line which seems to be his point of maximal tenderness now. There is no definite mass palpable, though there is some fullness of the abdominal wall on the left side relative to the right. He does have bowel sounds present. Extremities reveal palpable radial and pedal pulses bilaterally. He has no peripheral edema. LABORATORY DATA: His laboratory studies show a CBC with a white count of 13,000, hemoglobin of 13, hematocrit of 39 and a platelet count of 336,000. Differential count shows 87% neutrophils, 5% lymphocytes and 5% monocytes. His chemistry profile shows a sodium of 134, potassium 4.1, chloride 100, CO2 of 25, BUN of 17, creatinine 1.49 and glucose of 144. Liver function tests are normal with an amylase and lipase that are also normal. I did review the patient's CT scan, both the noncontrast and contrast versions of the abdomen and pelvis as well as the CT scan of chest. He certainly has a large hematoma. There is some contrast identified in the upper portion of the hematoma. No fractures were seen. The lung spivey are clear on the CT scan of the chest. IMPRESSION: Large spontaneous retroperitoneal and abdominal wall hematoma secondary to injury from weight lifting. PLAN: The patient clearly has a large hematoma. I would estimate that there is probably a liter or more of blood extravasated into the abdominal wall. It is difficult to estimate the volume of blood loss given the very irregular boundaries and shape. He did have an episode of transient loss of consciousness and diaphoresis while sitting in a wheelchair suggestive of intravascular volume depletion; though when he was tested immediately post this incident his blood pressure was good. I have recommended to the patient that he be admitted to the hospital for close monitoring. He will be placed in the intensive care unit where his vital signs can be more closely monitored. He will receive continuing hydration with IV fluid. As he has not been nauseous I will allow him to take some clear liquids as tolerated. I will keep him on bed rest. We will use thromboembolism deterrents (TEDs) and sequentials for DVT prophylaxis as in the face of potential active bleeding, pharmacologic prophylaxis would be contraindicated. He will be provided analgesics as needed. Hopefully his bleeding will stop before there is any need for transfusion of blood or blood products. He was counseled that transfusion may be necessary and that if he shows evidence of continued bleeding we may even have to consider a direct exploration of his hematoma. KALYANI
--- NOTE | 2016-03-24 13:07 | ECGEPIP ---
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
[2016-03-24] MEDS: SLF 3 ML SYR IV SCH ×2 (14:00→21:30)
[2016-03-24] MEDS ORDERED: SLF 3 ML SYR IV PRN (14:00)
[2016-03-24 18:28] LABS: MEAN CORPUSCULAR HGB CONC 32.7 g/dl (32.0-36.5); MEAN CORPUSCULAR VOLUME 91.7 fl (80.0-96.0); RED CELL DISTRIBUTION WIDTH 13.4 % (11.5-14.5); WHITE BLOOD COUNT 11.4 K/mm3 (4.0-10.0)
[2016-03-24 18:35] LABS: INR 1.01
[2016-03-24 19:06] LABS: COLLAGEN ADP 134 SECONDS (56-103)
--- NOTE | 2016-03-24 20:03 | REP ---
CT of the abdomen and pelvis without contrast, 03/23/16 Indication: Trauma. The patient was lifting weights and felt a pop within the left side of the abdomen Comparison P A chest with left rib series also performed 03/23/16 and was negative Technique: 3 mm spiral axial sections performed through the abdomen and pelvis without IV or oral contrast Findings: Heterogeneous low-density material seen in the region of the left cardiophrenic angle may represent epicardial fat pad with an infiltrated appearance. The lung bases are clear bilaterally. The included portions of the ribs are without fracture. Visualized portions of the lower sternum and xyphoid are normal. Liver, spleen, pancreas, gallbladder, adrenal glands are normal. There is a large left abdominal wall hematoma which causes extrinsic impression upon the left peritoneal cavity. This hematoma measures approximately 13 cm AP by 8.3 cm transverse dimension by 26 cm cranial caudal dimension, and extends into the lower pelvis. This does cause mass effect upon the left kidney which is deviated medially and anteriorly. There is extensive retroperitoneal hematoma in the left side of the pelvis. The bladder is deviated to the right. The abdominal aorta is of normal course and caliber. Stomach small bowel are without obstruction. There is no free air. There is no evidence of lumbosacral spine fracture. Visualized portions of the lower thoracic spine are without fracture or displacement. The sacrum and coccyx are normal. SI joint are intact. The hips bilaterally and the bony pelvis are intact without fracture or displacement. Impression 1. Large left lateral abdominal wall hematoma with mass effect and extrinsic impression upon the left peritoneal cavity, and the left kidney . This hematoma measures 13.2 cm AP by 8.4 cm transverse by 26 cm cranial caudal dimension 2. Moderate retroperitoneal hematoma descends into the pelvis on the left . There is mass effect upon and rightward deviation of the bladder and left colon. 3. Probable infiltrated appearance within the epicardial fat within the left cardiophrenic angle. Recommend CT of the chest, abdomen and pelvis with dynamic IV contrast. Case discussed with MICKEY Mackey in ED. Signed by Ariana Jernigan MD 03/24/2016 07:54 P
--- NOTE | 2016-03-24 20:04 | REP ---
PA chest with left rib series 03/23/2016 Indication: Trauma Comparison: None Findings: The cardiomediastinal silhouette is normal. Lungs are clear bilaterally. The bones and soft tissues within normal limits. Left ribs and the thoracic spine are without fracture or deformity. Impression: no acute cardiopulmonary process. Unremarkable left rib series Signed by Ariana Jernigan MD 03/24/2016 07:56 P
[2016-03-24] MEDS: ESCITALOPRAM OXALATE 10 MG TAB (LEXAPRO) PO SCH (21:30)
[2016-03-25] VITALS (15 sets, daily range): BP systolic 140–183; BP diastolic 64–88
[2016-03-25] MEDS: MORPHINE 2 MG/ML 1ML SYRINGE IV PRN ×3 (02:22→08:17)
[2016-03-25 04:53] LABS: MEAN CORPUSCULAR HEMOGLOBIN 29.1 pg (27.0-33.0); MEAN CORPUSCULAR HGB CONC 31.7 g/dl (32.0-36.5); MEAN CORPUSCULAR VOLUME 91.7 fl (80.0-96.0); RED CELL DISTRIBUTION WIDTH 13.5 % (11.5-14.5); WHITE BLOOD COUNT 10.4 K/mm3 (4.0-10.0)
[2016-03-25] MEDS: SLF 3 ML SYR IV SCH ×3 (04:57→20:11)
[2016-03-25 04:59] LABS: ANION GAP 6 MEQ/L (8-16); BLOOD UREA NITROGEN 12 MG/DL (7-18); CALCIUM LEVEL 7.6 MG/DL (8.5-10.1); CARBON DIOXIDE LEVEL 28 MEQ/L (21-32); CHLORIDE LEVEL 104 MEQ/L (98-107); CREATININE FOR GFR 1.15 MG/DL (0.70-1.30); GLOMERULAR FILTRATION RATE > 60.0 (>60); GLUCOSE, FASTING 84 MG/DL (70-105); POTASSIUM SERUM 4.1 MEQ/L (3.5-5.1); SODIUM LEVEL 138 MEQ/L (136-145)
[2016-03-25] MEDS ORDERED: MORPHINE 4 MG/ML 1ML SYRINGE IV ONE (06:45)
[2016-03-25] MEDS: PANTOPRAZOLE 40MG INJ (PROTONIX) (C9113) IV SCH (08:18)
[2016-03-25] MEDS: DOCUSATE SODIUM 100 MG CAP PO SCH ×2 (08:18→20:10)
[2016-03-25] MEDS ORDERED: SENNA 8.6 MG TAB (SENOKOT) PO PRN (08:45)
[2016-03-25] MEDS ORDERED: NALOXONE INJ 0.4 MG/1 ML VIAL (J2310) IV PRN (09:00)
[2016-03-25] MEDS ORDERED: NALBUPHINE HCL 10 MG/ML AMP (J2300) IV PRN (09:00)
[2016-03-25] MEDS ORDERED: EPIDURAL/PCA KEYS XX PRN (09:00)
[2016-03-25] MEDS ORDERED: ONDANSETRON 4MG/2ML VIAL (J2405) IV PRN (09:00)
[2016-03-25] MEDS ORDERED: diphenhydrAMINE INJ 50MG/ML VIAL (J1200) IV PRN (09:00)
[2016-03-25] MEDS: MORPHINE PCA 1MG/ML 100ML CADD IV PRN (09:27)
[2016-03-25] MEDS: NS 1,000 ML IV SCH (09:27)
[2016-03-25] MEDS ORDERED: METOCLOPRAMIDE INJ 10MG/2ML VIAL (J2765) IV PRN (09:30)
[2016-03-25 19:37] LABS: MEAN CORPUSCULAR HEMOGLOBIN 29.9 pg (27.0-33.0); MEAN CORPUSCULAR HGB CONC 32.4 g/dl (32.0-36.5); MEAN CORPUSCULAR VOLUME 92.1 fl (80.0-96.0); RED CELL DISTRIBUTION WIDTH 15.1 % (11.5-14.5); WHITE BLOOD COUNT 21.5 K/mm3 (4.0-10.0)
[2016-03-25 19:56] LABS: ANION GAP 8 MEQ/L (8-16); BLOOD UREA NITROGEN 19 MG/DL (7-18); CALCIUM LEVEL 7.4 MG/DL (8.5-10.1); CARBON DIOXIDE LEVEL 26 MEQ/L (21-32); CHLORIDE LEVEL 101 MEQ/L (98-107); CREATININE FOR GFR 1.39 MG/DL (0.70-1.30); GLOMERULAR FILTRATION RATE > 60.0 (>60); GLUCOSE, FASTING 114 MG/DL (70-105); SODIUM LEVEL 135 MEQ/L (136-145)
[2016-03-25 19:57] LABS: POTASSIUM SERUM 5.3 MEQ/L (3.5-5.1)
[2016-03-25] MEDS: ESCITALOPRAM OXALATE 10 MG TAB (LEXAPRO) PO SCH (20:10)
--- NOTE | 2016-03-25 20:45 | EDDOCDS ---
Nurse's Notes [facility] Name: Ubaldo Garcia Age: 40 yrs Sex: Male : 1975 Arrival Date: 03/23/2016 Time: 13:15 Bed 3 Private MD: NO PRIMARY PHYSICIAN, . Diagnosis: Disorders of retroperitoneum-Retroperitoneal and flank hematoma Presentation: 03/23 13:41 Presenting complaint: Patient states: left external oblique pain started near ribs and [facility] now is all the way down, initially injured evening working out, squatting [phone]#. Adult Sepsis Screening: The patient does not have new or worsening altered mentation. Patient's respiratory rate is less than 22. Systolic blood pressure is greater than 100. Patient has a qSOFA score of 0- Negative Sepsis Screen. Suicide/Homicide risk assessment- the patient denies having any suicidal and/or homicidal ideations and does not present with any other emotional, behavioral or mental health complaints. Status: Patient is not a director social service or dependent. Transition of care: patient was not received from another setting of care. 13:41 Acuity: WILL Level 4 [facility] 13:41 Method Of Arrival: Walkin/Carried/Asstd [facility] 13:53 Acuity level changed due to complexity of care. srm 13:53 Acuity: WILL Level 3 srm Triage Assessment: 13:46 General: Appears in no apparent distress, uncomfortable, Behavior is appropriate for [facility] age, cooperative. Pain: Location: anterior aspect of right lateral abdomen and posterior aspect of right lateral abdomen Pain currently is 8 out of 10 on a pain scale. HIV screening NA for this visit Offered previously. Respiratory: Airway is patent Respiratory effort is even, unlabored, Respiratory pattern is regular, symmetrical. Musculoskeletal: Range of motion intact in all extremities. Historical: - Allergies: no known allergies; - Home Meds: 1. Lexapro 10 mg Oral tab 1 tab once daily (Last dose: 03/21/2016) 2. ibuprofen 800 mg Oral tab every 4 hours (Last dose: 03/23/2016 11:00) 3. methocarbamol 500 mg Oral tab as needed (Last dose: 03/23/2016 08:00) - PMHx: none; - PSHx: Hernia repair- Right inguinal; - Social history: Smoking status: Patient states former smoker of tobacco. No barriers to communication noted. - Family history: Not pertinent. - : The pt / caregiver states he / she is not on anticoagulants. Home medication list is obtained from. - Exposure Risk Screening:: None identified. Screenin:39 Screening information is obtained from the patient. Primary language is Slovak. Fall jam1 risk: No risks identified. Assistance ADL's: requires no assistance with activities of daily living. Abuse/DV Screen: The patient / caregiver reports he/she is: not in a situation that causes fear, pain or injury. Nutritional screening: No deficits noted. Exposure Risk Screening: None identified. Advance Directives: Currently, there is no health care proxy. There is no active DNR order. There is no living will. There is no Power of Party Supply Specialist. Advance directive information has not previously been placed in an [facility] medical record. Further advance directive information is declined. home support is adequate. Assessment: 14:02 General: Appears in no apparent distress, uncomfortable, Behavior is appropriate for dsf age, cooperative. Pain: Location: anterior aspect of left lateral abdomen, left upper quadrant and left lower quadrant Pain currently is 8 out of 10 on a pain scale. Quality of pain is described as sharp, Pain began 2-3 days ago Aggravated by coughing, deep breathing and movement. Neurological: Level of Consciousness is awake, alert, Oriented to person, place, time. Cardiovascular: Capillary refill < 3 seconds Heart tones S1 S2 present. Respiratory: Airway is patent Respiratory effort is even, unlabored, Respiratory pattern is regular, symmetrical, Breath sounds are clear bilaterally. GI: Abdomen is non- distended Bowel sounds present X 4 quads. Abd is soft X 4 quads Abd is tender to palpation in left upper quadrant and left lower quadrant. Derm: Skin is pink, warm & dry. 15:02 Adult Sepsis Screening: The patient does not have new or worsening altered mentation. dsf Patient's respiratory rate is less than 22. Systolic blood pressure is greater than 100. Patient has a qSOFA score of 0- Negative Sepsis Screen. General: Appears in no apparent distress, Behavior is appropriate for age, cooperative. Pain: Location: left upper quadrant and left lower quadrant. Cardiovascular: Capillary refill < 3 seconds. Respiratory: Airway is patent Respiratory effort is even, unlabored, Respiratory pattern is regular, symmetrical. Derm: Skin is pink, warm & dry. 16:25 General: pt making snoring noises, pale, diaphoretic in wheel chair. lips pale, arms srm stiff left leg out straight and stiff. pt not responsive to nurse. voice. episode lasted approximately 30 secs before coming too. pt doesn't remember episodes. oxygen applied immediately. bp 135/62 hr 118 just after episodes. pt moved to room 11 in [facility] ed. after arriving to room 11 pt became pale and extremely diaphoretic in wheelchair , no unresponsiveness at this time. pt assisted to stretcher dr perera at bedside. 16:52 General: Appears in no apparent distress, comfortable, Behavior is cooperative. Pain: bcj Location: abdomen Pain currently is 5 out of 10 on a pain scale. Cardiovascular: Rhythm is sinus rhythm Chest pain is denied. Respiratory: Airway is patent Respiratory effort is even, unlabored, Respiratory pattern is regular. Derm: Skin is intact, Skin is clammy, Skin is pale, pink, Skin temperature is cool. 18:08 Adult Sepsis Screening: The patient does not have new or worsening altered mentation. bcj Patient's respiratory rate is less than 22. Systolic blood pressure is greater than 100. Patient has a qSOFA score of 0- Negative Sepsis Screen. General: Appears. 18:12 General: Appears in no apparent distress, comfortable, Behavior is cooperative. Pain: bcj Location: posterior aspect of left lateral abdomen and left lower quadrant. Cardiovascular: Rhythm is sinus rhythm. GI: Abdomen is flat, non- distended. Derm: Skin is pink, warm & dry. 19:16 General: Appears in no apparent distress, comfortable, Behavior is appropriate for age, mlc cooperative, pleasant. Pain: Location: anterior aspect of left lateral abdomen and posterior aspect of left lateral abdomen. Neurological: Level of Consciousness is awake, alert, obeys commands, Oriented to person, place, time. Cardiovascular: Capillary refill < 3 seconds Heart tones S1 S2 present Rhythm is sinus rhythm. Respiratory: Airway is patent Respiratory effort is even, unlabored, Respiratory pattern is regular, Breath sounds are clear bilaterally. GI: Abdomen is non- distended Bowel sounds present X 4 quads. Derm: Skin is pink, warm & dry. 19:43 General: Appears in no apparent distress, comfortable, Behavior is cooperative. Pain: mlc Pain currently is 5 out of 10 on a pain scale. Neurological: Level of Consciousness is awake, alert, Oriented to person, place, time. Respiratory: Airway is patent Respiratory effort is even, unlabored, Respiratory pattern is regular. Vital Signs: 13:18 BP 132 / 67; Pulse 108; Resp 18 S; Temp 96.3(O); Pulse Ox 93% on R/A; Weight 108.86 kg gr2 (R); Height 5 ft. 11 in. (180.34 cm) (R); Pain 8/10; 14:05 Pulse Ox 97% ; jam1 14:38 BP 110 / 62; Pulse 101; Resp 20; Temp 97.2; Pulse Ox 97% ; Pain 7/10; jam1 14:45 Pain 6/10; dsf 15:32 BP 132 / 67; Pulse 95; Resp 20; Temp 97.6; Pulse Ox 97% ; Pain 5/10; jam1 16:31 BP 149 / 86 (auto/); bcj 16:34 Pulse 90 MON; bcj 16:37 BP 153 / 64 (auto/); bcj 16:37 Pulse 84 MON; bcj 16:47 BP 146 / 72 (auto/); bcj 16:47 Pulse 80 MON; bcj 16:52 BP 135 / 58 (auto/); bcj 16:52 Pulse 80 MON; Pulse Ox 95% ; bcj 17:27 BP 130 / 78 (auto/); bcj 17:28 Pulse Ox 98% ; bcj 17:45 BP 133 / 79 (auto/); bcj 17:45 Pulse 92 MON; Pulse Ox 98% ; bcj 18:00 BP 142 / 74 (auto/); bcj 18:00 Pulse 94 MON; Pulse Ox 99% ; bcj 18:15 Pulse 104 MON; Pulse Ox 84% ; mlc 18:15 BP 141 / 65 (auto/); mlc 18:30 Pulse 99 MON; Pulse Ox 100% ; mlc 18:30 BP 146 / 65 (auto/); mlc 18:45 BP 152 / 75 (auto/); mlc 18:45 Pulse 100 MON; Pulse Ox 100% ; mlc 19:00 BP 128 / 69 (auto/); mlc 19:00 Pulse 102 MON; Pulse Ox 100% ; mlc 19:43 BP 137 / 70; Pulse 101; Resp 18; Temp 96.8(O); Pulse Ox 98% on R/A; Pain 5/10; mlc 13:18 Body Mass Index 33.47 (108.86 kg, 180.34 cm) gr2 Vitals: 13:18 Log In Time: March 23, 2016 at 13:18. gr2 ED Course: 13:17 Patient visited by eKvin Hughes. gr2 13:17 NO PRIMARY PHYSICIAN, . is Private Physician. gr2 13:17 Patient moved to Waiting gr2 13:21 Patient visited by Kevin Hughes. gr2 13:21 Patient moved to Pre RCE gr2 13:43 Triage Initiated cjh 13:46 ice applied. cj 13:50 Coni Mackey PA-C is PHCP. ef1 13:50 Ambrocio Perera MD is Attending Physician. ef1 13:50 Patient moved to I4 / M4 ef1 13:51 Patient visited by Coni Mackey PA-C. ef1 14:04 Inserted saline lock: 18 gauge in right antecubital area The patient tolerated the dsf procedure well. 14:04 Monoscreen Sent. dsf 14:04 Amylase Sent. dsf 14:04 Basic Metabolic Profile Sent. dsf 14:04 CBC with Diff Sent. dsf 14:04 Lipase Sent. dsf 14:05 Patient visited by Kelly Leal RN. dsf 14:05 Liver Profile Sent. dsf 14:06 Patient visited by Jocelynn Bynum RN. srm 14:40 Patient visited by Coni Mackey PA-C. ef1 14:52 Patient name changed from Ubaldo\S\M\S\Garcia\S\ to Ubaldo\S\ \S\Garcia. EDMS 14:53 [facility] Payment Agreement was scanned into [employer] and attached to record. lg 14:55 Patient visited by Coni Mackey PA-C. ef1 15:02 Patient visited by Kelly Leal RN. dsf 15:29 Patient visited by Coni Mackey PA-C. ef1 16:11 Patient visited by Coni Mackey PA-C. ef1 16:25 Patient moved to [facility] 16:29 Patient visited by Ambrocio Perera MD. br1 16:34 Resting quietly. awaiting re-evaluation by ER physician. bcj 16:34 The patient / caregiver is instructed regarding the plan of care and ED course. Patient bcj has correct armband on for positive identification. Bed in low position. Call light in reach. Side rails up X2. accounting clerk on. Pulse ox on. NIBP on. 16:34 EKG done. (by ED staff). Reviewed by Coni Mackey PA-C. nb2 16:34 IV is intact. bcj 16:35 Patient visited by Jocelynn Bynum, LUIZA. srm 16:36 Patient visited by Gianna Mcgrath. nb2 16:41 Patient visited by Varsha Ayala PCA. rs6 16:55 Patient visited by Lawrence Trejo, RN. bcj 17:26 Patient moved to 3 pml 18:14 No apparent distress. Resting quietly. Awaiting bed assignment. bcj 18:14 IV is intact. bcj 18:15 Patient visited by Lawrence rTejo, LUIZA. bcj 18:26 Jemal Cadet is Hospitalizing Provider. br1 19:16 Danielle Briceno,RN is Primary Nurse. mlc 19:16 No procedures done that require assistance. mlc 19:18 Patient visited by Danielle Briceno RN. mlc 19:37 Attending Physician role handed off by Ambrocio Perera MD cs11 19:37 Pollo Gracia DO is Attending Physician. cs11 03/24 15:18 T-Sheet-- Draft Copy was scanned into [employer] and attached to record. kf3 16:59 Consents was scanned into [employer] and attached to record. kf3 17:00 ECG/EKG was scanned into [employer] and attached to record. kf3 Administered Medications: 03/23 13:52 CANCELLED (Duplicate Order): ketorolac 30 mg IVP once ef1 14:02 Drug: NS 0.9% 1000 ml [sodium chloride 0.9 % intravenous solution] Route: IV; Rate: srm bolus; Site: right antecubital; 14:02 Drug: Ondansetron 4 mg [ondansetron HCl 2 mg/mL intravenous solution (2 mL)] Route: srm IVP; Site: right antecubital; 14:03 Drug: morphine 4 mg [morphine 4 mg/mL intravenous cartridge (1 mL)] Route: IVP; Site: srm right antecubital; 14:45 Follow up: Pain 6/10 Adult; see charted VS dsf 16:50 Drug: NS 0.9% 1000 ml [sodium chloride 0.9 % intravenous solution] Route: IV; Rate: bcj bolus; Site: left antecubital; 18:21 Drug: morphine 4 mg [morphine 4 mg/mL intravenous cartridge (1 mL)] Route: IVP; Site: ja5 right antecubital; Attachments: 16:59 Consents kf3 Intake: Order Results: Lab Order: Amylase; SPEC'M 03/23/16 14:00 Test: AMYLASE; Value: 95; Range: 25-115; Units: U/L; Status: F Test: TROPONIN I; Range: < 0.10; Units: NG/ML; Status: I Lab Order: Basic Metabolic Profile; SPEC'M 03/23/16 14:00 Test: GLUCOSE, FASTING; Value: 144; Range: 70-105; Abnormal: Above high normal; Units: MG/DL; Status: F Test: BLOOD UREA NITROGEN; Value: 17; Range: 7-18; Units: MG/DL; Status: F Test: CREATININE FOR GFR; Value: 1.49; Range: 0.70-1.30; Abnormal: Above high normal; Units: MG/DL; Status: F Test: SODIUM LEVEL; Range: 136-145; Units: MEQ/L; Status: I Test: POTASSIUM SERUM; Range: 3.5-5.1; Units: MEQ/L; Status: I Test: CHLORIDE LEVEL; Range: 98-107; Units: MEQ/L; Status: I Test: CARBON DIOXIDE LEVEL; Range: 21-32; Units: MEQ/L; Status: I Test: ANION GAP; Range: 8-16; Units: MEQ/L; Status: I Test: CALCIUM LEVEL; Range: 8.5-10.1; Units: MG/DL; Status: I Test: GLOMERULAR FILTRATION RATE; Value: 55.6; Range: >60; Abnormal: Below low normal; Status: F Test: SODIUM LEVEL; Value: 134; Range: 136-145; Abnormal: Below low normal; Units: MEQ/L; Status: F Test: POTASSIUM SERUM; Value: 4.1; Range: 3.5-5.1; Units: MEQ/L; Status: F Test: CHLORIDE LEVEL; Value: 100; Range: 98-107; Units: MEQ/L; Status: F Test: CARBON DIOXIDE LEVEL; Value: 25; Range: 21-32; Units: MEQ/L; Status: F Test: ANION GAP; Value: 9; Range: 8-16; Units: MEQ/L; Status: F Test: CALCIUM LEVEL; Value: 8.5; Range: 8.5-10.1; Units: MG/DL; Status: F Test Note: ; Units are mL/min/1.73 m2 Chronic Kidney Disease Staging per NKF: Stage I & II GFR >=60 Normal to Mildly Decreased Stage III GFR 30-59 Moderately Decreased Stage IV GFR 15-29 Severely Decreased Stage V GFR <15 Very Little GFR Left ESRD GFR <15 on [employer] TECHNOLOGIST Lab Order: CBC with Diff; SPEC'M 03/23/16 14:00 Test: WHITE BLOOD COUNT; Value: 13.0; Range: 4.0-10.0; Abnormal: Above high normal; Units: K/mm3; Status: F Test: RED BLOOD COUNT; Value: 4.30; Range: 4.30-6.10; Units: M/mm3; Status: F Test: HEMOGLOBIN; Value: 12.8; Range: 14.0-18.0; Abnormal: Below low normal; Units: g/dl; Status: F Test: HEMATOCRIT; Value: 39.2; Range: 42.0-52.0; Abnormal: Below low normal; Units: %; Status: F Test: MEAN CORPUSCULAR VOLUME; Value: 91.2; Range: 80.0-96.0; Units: fl; Status: F Test: MEAN CORPUSCULAR HEMOGLOBIN; Value: 29.8; Range: 27.0-33.0; Units: pg; Status: F Test: MEAN CORPUSCULAR HGB CONC; Value: 32.7; Range: 32.0-36.5; Units: g/dl; Status: F Test: RED CELL DISTRIBUTION WIDTH; Value: 12.9; Range: 11.5-14.5; Units: %; Status: F Test: PLATELET COUNT, AUTOMATED; Value: 336; Range: 150-450; Units: k/mm3; Status: F Test: NEUTROPHILS %; Value: 87.4; Range: 36.0-66.0; Abnormal: Above high normal; Units: %; Status: F Test: LYMPH %; Value: 5.3; Range: 24.0-44.0; Abnormal: Below low normal; Units: %; Status: F Test: MONO %; Value: 5.2; Range: 0.0-5.0; Abnormal: Above high normal; Units: %; Status: F Test: EOS %; Value: 0.8; Range: 0.0-3.0; Units: %; Status: F Test: BASO %; Value: 0.4; Range: 0.0-1.0; Units: %; Status: F Test: LARGE UNSTAINED CELL %; Value: 0.8; Range: 0.0-4.0; Units: %; Status: F Test: NEUTROPHILS #; Value: 11.4; Range: 1.8-7.7; Abnormal: Above high normal; Units: K/mm3; Status: F Test: LYMPH #; Value: 0.7; Range: 1.5-4.5; Abnormal: Below low normal; Units: K/mm3; Status: F Test: MONO #; Value: 0.7; Range: 0.0-0.8; Units: K/mm3; Status: F Test: EOS #; Value: 0.1; Range: 0.0-0.50; Units: K/mm3; Status: F Test: BASO #; Value: 0.0; Range: 0.0-0.2; Units: K/mm3; Status: F Test: LARGE UNSTAINED CELL #; Value: 0.1; Range: 0.0-0.4; Units: K/mm3; Status: F Lab Order: Lipase; SPEC'M 03/23/16 14:00 Test: LIPASE; Value: 259; Range: 73-393; Units: U/L; Status: F Lab Order: Liver Profile; SPEC'M 03/23/16 14:00 Test: AST/SGOT; Value: 19; Range: 15-37; Units: U/L; Status: F Test: ALT/SGPT; Value: 29; Range: 12-78; Units: U/L; Status: F Test: ALKALINE PHOSPHATASE; Value: 36; Range: 45-117; Abnormal: Below low normal; Units: U/L; Status: F Test: BILIRUBIN,TOTAL; Value: 0.6; Range: 0.2-1.0; Units: MG/DL; Status: F Test: BILIRUBIN,DIRECT; Value: 0.2; Range: 0.0-0.2; Units: MG/DL; Status: F Test: TOTAL PROTEIN; Value: 6.8; Range: 6.4-8.2; Units: GM/DL; Status: F Test: ALBUMIN; Value: 3.8; Range: 3.2-5.2; Units: GM/DL; Status: F Test: ALBUMIN/GLOBULIN RATIO; Value: 1.27; Range: 1.00-1.93; Status: F Lab Order: Monoscreen; SPEC'M 03/23/16 14:00 Test: MONO SCRN; Value: NEGATIVE; Range: NEGATIVE; Status: F Lab Order: TROPONIN; SPEC'M 03/23/16 14:00 Test: TROPONIN I; Value: < 0.02; Range: < 0.10; Units: NG/ML; Status: F Test Note: ; Troponin I Reference Interval for [employer] [place] LOCI: 99th Percentile= 0.00-0.045 ng/ml Risk Stratification: <= 0.10 ng/ml Decreased Risk for Adverse Clinical Events. 0.10-1.50 ng/ml Increased Risk for Adverse Clinical Events. Evaluation of additional criterion and/or repeat testing in 2-6 hours is suggested to rule out myocardial damage. >= 1.50 ng/ml Indicative of Myocardial Injury. Outcome: 03/23 18:26 Decision to Hospitalize by Provider. br1 19:16 CT Study completed. [facility] 19:38 Discharge Assessment: Patient awake, alert and oriented x 3. No cognitive and/or mlc functional deficits noted. Patient verbalized understanding of disposition instructions. patient administered narcotics - yes. Patient was admitted to the hospital or transferred to another facility. The following High Risk Discharge criteria are identified: None. Admitted to ICU accompanied by nurse, accompanied by tech, via stretcher, on monitor, with chart. Condition: stable. Admission hand-off: Report called to LUIZA Torre. Property :Personal belongings accompany Pt. 19:45 Patient left the ED. [facility] Signatures: Dispatcher [employer] EDMS Lawrence Trejo RN RN bcj Michelson, Staci, RN RN srm Margi Schumacher, KAIAWHINA KURA [place]OR[place] KAIAWHINA KURA [place]ORI jam1 Flaco Cardenas, Reg Reg lg Baldev Kaiser, Reg Reg kf3 Ambrocio Perera MD MD br1 Coni Mackey, PA-C PA-C ef1 Kelly Leal,RN RN Xochitl Feliz,RN Margi Pagan RN RN [facility] Vishal, Pollo Huff, DO cs11 SaulSje gr2 Danielle Briceno,RN RN mlc Ayala, Varsha, KAIAWHINA [place] KAIAWHINA KURA [place]ORI rs6 Gianna Mcgrath nb2 Rubia Ortez RN RN ja5 Corrections: (The following items were deleted from the chart) 16:41 16:25 General: pt making snoring noises, pale, diaphoretic in wheel chair. ;lips pale. srm pt not responsive to nurse. voice. episode lasted approximately 30 secs before coming too. pt doesn't remember epsidoe. oxygen applied immediately. bp 135/62 hr 118 just after episodes. pt moved to room 11 in [facility] ed. after arriving to room 11 pt became pale and extremely diaphoretic in wheelchair , no unresponsiveness at this time. pt assisted to stretcher dr perera at bedside. srm 18:32 16:50 TROPONIN+LAB sent. [facility] EDMS Chart Complete MTDD
--- NOTE | 2016-03-25 20:45 | EDDOCDS ---
Physician Documentation [facility] Name: Ubaldo Garcia Age: 40 yrs Sex: Male : 1975 Arrival Date: 03/23/2016 Time: 13:15 Bed 3 Private MD: NO PRIMARY PHYSICIAN, . Disposition: 03/23/16 18:26 Hospitalization ordered by Jemal Cadet for Inpatient Admission. Preliminary diagnosis is Disorders of retroperitoneum - Retroperitoneal and flank hematoma. - Bed requested for M ICU. - Status is Inpatient Admission. mlc - Condition is Stable. - Problem is new. - Symptoms are unchanged. Historical: - Allergies: no known allergies; - Home Meds: 1. Lexapro 10 mg Oral tab 1 tab once daily (Last dose: 03/21/2016) 2. ibuprofen 800 mg Oral tab every 4 hours (Last dose: 03/23/2016 11:00) 3. methocarbamol 500 mg Oral tab as needed (Last dose: 03/23/2016 08:00) - PMHx: none; - PSHx: Hernia repair- Right inguinal; - Social history: Smoking status: Patient states former smoker of tobacco. No barriers to communication noted. - Family history: Not pertinent. - : The pt / caregiver states he / she is not on anticoagulants. Home medication list is obtained from. - Exposure Risk Screening:: None identified. Vital Signs: 03/23 13:18 BP 132 / 67; Pulse 108; Resp 18 S; Temp 96.3(O); Pulse Ox 93% on R/A; Weight 108.86 kg gr2 / 240 lbs (R); Height 5 ft. 11 in. (180.34 cm) (R); Pain 8/10; 14:05 Pulse Ox 97% ; jam1 14:38 BP 110 / 62; Pulse 101; Resp 20; Temp 97.2; Pulse Ox 97% ; Pain 7/10; jam1 14:45 Pain 6/10; dsf 15:32 BP 132 / 67; Pulse 95; Resp 20; Temp 97.6; Pulse Ox 97% ; Pain 5/10; jam1 16:31 BP 149 / 86 (auto/); bcj 16:34 Pulse 90 MON; bcj 16:37 BP 153 / 64 (auto/); bcj 16:37 Pulse 84 MON; bcj 16:47 BP 146 / 72 (auto/); bcj 16:47 Pulse 80 MON; bcj 16:52 BP 135 / 58 (auto/); bcj 16:52 Pulse 80 MON; Pulse Ox 95% ; bcj 17:27 BP 130 / 78 (auto/); bcj 17:28 Pulse Ox 98% ; bcj 17:45 BP 133 / 79 (auto/); bcj 17:45 Pulse 92 MON; Pulse Ox 98% ; bcj 18:00 BP 142 / 74 (auto/); bcj 18:00 Pulse 94 MON; Pulse Ox 99% ; bcj 18:15 Pulse 104 MON; Pulse Ox 84% ; mlc 18:15 BP 141 / 65 (auto/); mlc 18:30 Pulse 99 MON; Pulse Ox 100% ; mlc 18:30 BP 146 / 65 (auto/); mlc 18:45 BP 152 / 75 (auto/); mlc 18:45 Pulse 100 MON; Pulse Ox 100% ; mlc 19:00 BP 128 / 69 (auto/); mlc 19:00 Pulse 102 MON; Pulse Ox 100% ; mlc 19:43 BP 137 / 70; Pulse 101; Resp 18; Temp 96.8(O); Pulse Ox 98% on R/A; Pain 5/10; mlc 13:18 Body Mass Index 33.47 (108.86 kg, 180.34 cm) gr2 MDM: 13:52 NS 0.9% 1000 ml IV at bolus once ordered. ef1 13:52 Ondansetron 4 mg IVP once ordered. ef1 13:52 IV Saline Lock ordered. ef1 13:52 Undress patient appropriately for examination ordered. ef1 13:53 Amylase Ordered. EDMS 13:53 Basic Metabolic Profile Ordered. EDMS 13:53 CBC with Diff Ordered. EDMS 13:53 Lipase Ordered. EDMS 13:53 Liver Profile Ordered. EDMS 13:53 Monoscreen Ordered. EDMS 13:53 CT ABD & PELVIS: No Contrast Ordered. EDMS 13:53 morphine 4 mg IVP once ordered. ef1 13:53 Pulse ox spot check ordered. ef1 13:53 NOTHING BY MOUTH+DIET ordered. EDMS 13:54 Rib Unilat W/PA Chest Only Ordered. EDMS 14:17 Financial registration complete. lg 14:47 Basic Metabolic Profile Reviewed. ef1 14:47 CBC with Diff Reviewed. ef1 14:47 Liver Profile Reviewed. ef1 14:47 Amylase Reviewed. ef1 14:47 Lipase Reviewed. ef1 14:47 Monoscreen Reviewed. ef1 14:53 [facility] [place] was scanned into [employer] and attached to record. lg 16:14 CT Chest With Contrast Ordered. EDMS 16:14 CT ABD & PELVIS: IV Contrast Only Ordered. EDMS 16:19 morphine 4 mg IVP once ordered. ef1 16:28 ECG WITH READING ER PHYS+CARDIAG ordered. EDMS 16:33 NS 0.9% 1000 ml IV at bolus once ordered. br1 16:34 Van Loader/Pulse Ox/q 30 min VS ordered. br1 17:11 Type & Screen Ordered. EDMS 17:11 Type and Cross, Packed Cells Ordered. EDMS 17:27 ED course: Assumed care of patient. Normotemsive, feeling better at this time. br1 Discuss[address] Cadet imaging findings. Being bolused with normal saline. Dr. Cadet recommends holding on blood transfusion at this time, on his way to see patient.. 17:31 BED REQUEST+ADM ordered. EDMS 18:29 Admission / Observation Status ordered. EDMS 18:29 CLEAR LIQUIDS DIET ordered. EDMS 18:30 COMPLETE BLOOD COUNT Ordered. EDMS 18:32 TROPONIN Ordered. EDMS 19:33 COMPLETE BLOOD COUNT Ordered. EDMS 19:33 BASIC METABOLIC PROFILE Ordered. EDMS 03/24 15:18 T-Sheet-- Draft Copy was scanned into [employer] and attached to record. kf3 16:59 Consents was scanned into [employer] and attached to record. kf3 17:00 ECG/EKG was scanned into [employer] and attached to record. kf3 Administered Medications: 03/23 13:52 CANCELLED (Duplicate Order): ketorolac 30 mg IVP once ef1 14:02 Drug: NS 0.9% 1000 ml [sodium chloride 0.9 % intravenous solution] Route: IV; Rate: srm bolus; Site: right antecubital; 14:02 Drug: Ondansetron 4 mg [ondansetron HCl 2 mg/mL intravenous solution (2 mL)] Route: srm IVP; Site: right antecubital; 14:03 Drug: morphine 4 mg [morphine 4 mg/mL intravenous cartridge (1 mL)] Route: IVP; Site: srm right antecubital; 14:45 Follow up: Pain 6/10 Adult; see charted VS dsf 16:50 Drug: NS 0.9% 1000 ml [sodium chloride 0.9 % intravenous solution] Route: IV; Rate: bcj bolus; Site: left antecubital; 18:21 Drug: morphine 4 mg [morphine 4 mg/mL intravenous cartridge (1 mL)] Route: IVP; Site: [facility] right antecubital; Signatures: Dispatcher [employer] EDLawrence Medrano, RN RN bcFlaco Long, Reg Reg lg Baldev Kaiser, Reg Reg kf3 Ambrocio Freeman MD MD br1 Coni Mackey, PA-C PA-C ef1 Margi FrostRN RN [place] Danielle BricenoRN Tacho Rocha RN RN sa Michelson, Staci RN srm Fuller, Desiree RN dsRubia Guthrie RN ja5 The chart was reviewed and I authenticate all verbal orders and agree with the evaluation and treatment provided.Corrections: (The following items were deleted from the chart) 13:52 13:52 ketorolac 30 mg IVP once ordered. ef1 ef1 17:26 17:16 Transfuse PRBC's 2 units, ensure PRBCs ordered in lab ordered. br1 br1 18:32 16:26 TROPONIN+LAB ordered. EDMS EDMS 19:31 18:29 TYPE & SCREEN ordered. EDMS EDMS Attachments: 14:53 [facility] Payment Agreement lg 03/24 15:18 T-Sheet-- Draft Copy kf3 17:00 ECG/EKG kf3 Chart Complete MTDD
--- NOTE | 2016-03-25 20:45 | EDDOCDS ---
Physician Documentation [facility] Name: Ubaldo Garcia Age: 40 yrs Sex: Male : 1975 Arrival Date: 03/23/2016 Time: 13:15 Bed 3 Private MD: NO PRIMARY PHYSICIAN, . Disposition: 03/23/16 18:26 Hospitalization ordered by Jemal Cadet for Inpatient Admission. Preliminary diagnosis is Disorders of retroperitoneum - Retroperitoneal and flank hematoma. - Bed requested for M ICU. - Status is Inpatient Admission. mlc - Condition is Stable. - Problem is new. - Symptoms are unchanged. Historical: - Allergies: no known allergies; - Home Meds: 1. Lexapro 10 mg Oral tab 1 tab once daily (Last dose: 03/21/2016) 2. ibuprofen 800 mg Oral tab every 4 hours (Last dose: 03/23/2016 11:00) 3. methocarbamol 500 mg Oral tab as needed (Last dose: 03/23/2016 08:00) - PMHx: none; - PSHx: Hernia repair- Right inguinal; - Social history: Smoking status: Patient states former smoker of tobacco. No barriers to communication noted. - Family history: Not pertinent. - : The pt / caregiver states he / she is not on anticoagulants. Home medication list is obtained from. - Exposure Risk Screening:: None identified. Vital Signs: 03/23 13:18 BP 132 / 67; Pulse 108; Resp 18 S; Temp 96.3(O); Pulse Ox 93% on R/A; Weight 108.86 kg gr2 / 240 lbs (R); Height 5 ft. 11 in. (180.34 cm) (R); Pain 8/10; 14:05 Pulse Ox 97% ; jam1 14:38 BP 110 / 62; Pulse 101; Resp 20; Temp 97.2; Pulse Ox 97% ; Pain 7/10; jam1 14:45 Pain 6/10; dsf 15:32 BP 132 / 67; Pulse 95; Resp 20; Temp 97.6; Pulse Ox 97% ; Pain 5/10; jam1 16:31 BP 149 / 86 (auto/); bcj 16:34 Pulse 90 MON; bcj 16:37 BP 153 / 64 (auto/); bcj 16:37 Pulse 84 MON; bcj 16:47 BP 146 / 72 (auto/); bcj 16:47 Pulse 80 MON; bcj 16:52 BP 135 / 58 (auto/); bcj 16:52 Pulse 80 MON; Pulse Ox 95% ; bcj 17:27 BP 130 / 78 (auto/); bcj 17:28 Pulse Ox 98% ; bcj 17:45 BP 133 / 79 (auto/); bcj 17:45 Pulse 92 MON; Pulse Ox 98% ; bcj 18:00 BP 142 / 74 (auto/); bcj 18:00 Pulse 94 MON; Pulse Ox 99% ; bcj 18:15 Pulse 104 MON; Pulse Ox 84% ; mlc 18:15 BP 141 / 65 (auto/); mlc 18:30 Pulse 99 MON; Pulse Ox 100% ; mlc 18:30 BP 146 / 65 (auto/); mlc 18:45 BP 152 / 75 (auto/); mlc 18:45 Pulse 100 MON; Pulse Ox 100% ; mlc 19:00 BP 128 / 69 (auto/); mlc 19:00 Pulse 102 MON; Pulse Ox 100% ; mlc 19:43 BP 137 / 70; Pulse 101; Resp 18; Temp 96.8(O); Pulse Ox 98% on R/A; Pain 5/10; mlc 13:18 Body Mass Index 33.47 (108.86 kg, 180.34 cm) gr2 MDM: 13:52 NS 0.9% 1000 ml IV at bolus once ordered. ef1 13:52 Ondansetron 4 mg IVP once ordered. ef1 13:52 IV Saline Lock ordered. ef1 13:52 Undress patient appropriately for examination ordered. ef1 13:53 Amylase Ordered. EDMS 13:53 Basic Metabolic Profile Ordered. EDMS 13:53 CBC with Diff Ordered. EDMS 13:53 Lipase Ordered. EDMS 13:53 Liver Profile Ordered. EDMS 13:53 Monoscreen Ordered. EDMS 13:53 CT ABD & PELVIS: No Contrast Ordered. EDMS 13:53 morphine 4 mg IVP once ordered. ef1 13:53 Pulse ox spot check ordered. ef1 13:53 NOTHING BY MOUTH+DIET ordered. EDMS 13:54 Rib Unilat W/PA Chest Only Ordered. EDMS 14:17 Financial registration complete. lg 14:47 Basic Metabolic Profile Reviewed. ef1 14:47 CBC with Diff Reviewed. ef1 14:47 Liver Profile Reviewed. ef1 14:47 Amylase Reviewed. ef1 14:47 Lipase Reviewed. ef1 14:47 Monoscreen Reviewed. ef1 14:53 [facility] [place] Agreement was scanned into [employer] and attached to record. lg 16:14 CT Chest With Contrast Ordered. EDMS 16:14 CT ABD & PELVIS: IV Contrast Only Ordered. EDMS 16:19 morphine 4 mg IVP once ordered. ef1 16:28 ECG WITH READING ER PHYS+CARDIAG ordered. EDMS 16:33 NS 0.9% 1000 ml IV at bolus once ordered. br1 16:34 Boil Off Machine Operator Cloth/Pulse Ox/q 30 min VS ordered. br1 17:11 Type & Screen Ordered. EDMS 17:11 Type and Cross, Packed Cells Ordered. EDMS 17:27 ED course: Assumed care of patient. Normotemsive, feeling better at this time. br[address] Cadet imaging findings. Being bolused with normal saline. Dr. Cadet recommends holding on blood transfusion at this time, on his way to see patient.. 17:31 BED REQUEST+ADM ordered. EDMS 18:29 Admission / Observation Status ordered. EDMS 18:29 CLEAR LIQUIDS DIET ordered. EDMS 18:30 COMPLETE BLOOD COUNT Ordered. EDMS 18:32 TROPONIN Ordered. EDMS 19:33 COMPLETE BLOOD COUNT Ordered. EDMS 19:33 BASIC METABOLIC PROFILE Ordered. EDMS 03/24 15:18 T-Sheet-- Draft Copy was scanned into [employer] and attached to record. kf3 16:59 Consents was scanned into [employer] and attached to record. kf3 17:00 ECG/EKG was scanned into [employer] and attached to record. kf3 Administered Medications: 03/23 13:52 CANCELLED (Duplicate Order): ketorolac 30 mg IVP once ef1 14:02 Drug: NS 0.9% 1000 ml [sodium chloride 0.9 % intravenous solution] Route: IV; Rate: srm bolus; Site: right antecubital; 14:02 Drug: Ondansetron 4 mg [ondansetron HCl 2 mg/mL intravenous solution (2 mL)] Route: srm IVP; Site: right antecubital; 14:03 Drug: morphine 4 mg [morphine 4 mg/mL intravenous cartridge (1 mL)] Route: IVP; Site: srm right antecubital; 14:45 Follow up: Pain 6/10 Adult; see charted VS dsf 16:50 Drug: NS 0.9% 1000 ml [sodium chloride 0.9 % intravenous solution] Route: IV; Rate: bcj bolus; Site: left antecubital; 18:21 Drug: morphine 4 mg [morphine 4 mg/mL intravenous cartridge (1 mL)] Route: IVP; Site: [facility] right antecubital; Signatures: Dispatcher [employer] EDLawrence Medrano, RN RN bcFlaco Long, Reg Reg lg Baldev Kaiser, Reg Reg kf3 Ambrocio Freeman MD MD br1 Coni Mackey, PA-C PA-C ef1 Margi FrostRN RN [place] Danielle BricenoRN Tacho Rocha RN RN sa Michelson, Staci RN srm Fuller, Desiree RN dsRubia Guthrie RN ja5 The chart was reviewed and I authenticate all verbal orders and agree with the evaluation and treatment provided.Corrections: (The following items were deleted from the chart) 13:52 13:52 ketorolac 30 mg IVP once ordered. ef1 ef1 17:26 17:16 Transfuse PRBC's 2 units, ensure PRBCs ordered in lab ordered. br1 br1 18:32 16:26 TROPONIN+LAB ordered. EDMS EDMS 19:31 18:29 TYPE & SCREEN ordered. EDMS EDMS Attachments: 14:53 [facility] Payment Agreement lg 03/24 15:18 T-Sheet-- Draft Copy kf3 17:00 ECG/EKG kf3 Chart Complete MTDD
[2016-03-26] VITALS (26 sets, daily range): BP systolic 147–199; BP diastolic 67–97
[2016-03-26] MEDS: NS 1,000 ML IV SCH ×4 (02:56→21:22)
[2016-03-26 05:41] LABS: BASO % 0.2 % (0.0-1.0); EOS # 0.1 K/mm3 (0.0-0.50); EOS % 0.5 % (0.0-3.0); LARGE UNSTAINED CELL # 0.2 K/mm3 (0.0-0.4); LARGE UNSTAINED CELL % 1.3 % (0.0-4.0); LYMPH % 6.3 % (24.0-44.0); MEAN CORPUSCULAR HEMOGLOBIN 29.8 pg (27.0-33.0); MEAN CORPUSCULAR HGB CONC 32.9 g/dl (32.0-36.5); MEAN CORPUSCULAR VOLUME 90.5 fl (80.0-96.0); MONO % 6.3 % (0.0-5.0); NEUTROPHILS # 13.7 K/mm3 (1.8-7.7); NEUTROPHILS % 85.4 % (36.0-66.0); PLATELET COUNT, AUTOMATED 239 k/mm3 (150-450); RED CELL DISTRIBUTION WIDTH 14.5 % (11.5-14.5)
[2016-03-26 05:55] LABS: ALBUMIN 2.9 GM/DL (3.2-5.2); ALBUMIN/GLOBULIN RATIO 0.88 (1.00-1.93); ALKALINE PHOSPHATASE 39 U/L (45-117); ALT/SGPT 24 U/L (12-78); ANION GAP 7 MEQ/L (8-16); AST/SGOT 21 U/L (15-37); BILIRUBIN,TOTAL 0.9 MG/DL (0.2-1.0); BLOOD UREA NITROGEN 15 MG/DL (7-18); CALCIUM LEVEL 7.2 MG/DL (8.5-10.1); CARBON DIOXIDE LEVEL 27 MEQ/L (21-32); CHLORIDE LEVEL 102 MEQ/L (98-107); CREATININE FOR GFR 1.11 MG/DL (0.70-1.30); GLOMERULAR FILTRATION RATE > 60.0 (>60); GLUCOSE, FASTING 95 MG/DL (70-105); POTASSIUM SERUM 4.7 MEQ/L (3.5-5.1); SODIUM LEVEL 136 MEQ/L (136-145); TOTAL PROTEIN 6.2 GM/DL (6.4-8.2)
[2016-03-26] MEDS: SLF 3 ML SYR IV SCH ×3 (06:17→21:22)
[2016-03-26] MEDS: PANTOPRAZOLE 40MG INJ (PROTONIX) (C9113) IV SCH (08:39)
[2016-03-26] MEDS: DOCUSATE SODIUM 100 MG CAP PO SCH ×2 (08:39→21:21)
[2016-03-26] MEDS ORDERED: SODIUM CHLORIDE 0.9% 1000 ML IV ONE (10:30)
[2016-03-26] MEDS ORDERED: ISOVUE-300 61% 50ML VIAL (Q9967) As Ordered ONE ×4 (15:32→17:24)
[2016-03-26] MEDS ORDERED: SODIUM BICARBONATE 8.4% INJ 50MEQ 50 ML VIAL As Ordered ONE (15:32)
--- NOTE | 2016-03-26 18:44 | REPKIM ---
CLINICAL HISTORY: Patient presents with extensive hematoma in the left flank, extraperitoneal, retroperitoneal extension with some degree of hemoperitoneum as well. The recent CT showed evidence of active extravasation of contrast opacified blood within the hematoma in the left flank around T10 intercostal region. The referring service has asked an arteriogram/possible intervention. PROCEDURE PERFORMED: 1. Abdominal Aortogram 2. Selective left T9 and T10 intercostal arteriograms 3. Selective inferior phrenic and splenic arteriograms INTERVENTIONALIST: Dr. Minh Gutierrez CONSENT: The risks, benefits and alternatives to the procedure were explained to the patient and informed written consent was obtained. MEDICATIONS: Local Lidocaine 2% EBL: 25 mL CONTRAST: 279 mL Isovue 300 FLUORO TIME: 35.5 minutes COMPLICATIONS: None immediate PROCEDURE/FINDINGS: The patient was brought to the interventional radiology suite where a timeout procedure was performed. The patient was placed in the supine position and the right groin prepped and draped in a sterile fashion. A 4-Iranian vascular sheath was introduced into the right common femoral artery using the Seldinger technique with a micropuncture needle, after infiltration of the skin and deep tissues with local anesthetic. Over a guidewire, a 5-Iranian Omni flush catheter was advanced and under fluoroscopy positioned in the abdominal aorta above the level of the T9 intercostal artery origin. Contrast was injected and abdominal aortogram was performed in the frontal projection. This showed no obvious extravasation of contrast or pseudoaneurysm. The catheter was exchanged and a 4- Iranian selective catheter was introduced over a guidewire. Selective catheterizations of the T9 and T10 left intercostal arteries were performed. T11 intercostal artery could not be subselected. Catheter/sheath exchange was performed over a guidewire. A 5-Iranian selective catheter was introduced. Selective catheterizations of the inferior phrenic artery and splenic artery were performed. Contrast was injected into each of these aforementioned arteries and selective angiograms were performed. The catheter and vascular sheath were removed. Hemostasis was achieved by manual compression over the puncture site. The patient tolerated the procedure well with no immediate complications. This procedure was performed with fluoroscopic guidance. Dr. Gutierrez was present. FINDINGS: 1. Flush abdominal aortogram demonstrates a classic anatomy. No obvious extravasation of contrast or pseudoaneurysm identified. 2. Selective T9, T10, inferior phrenic and splenic arteriograms showed no evidence of contrast pooling, extravasation of contrast, pseudoaneurysm or vessel truncation. IMPRESSION: Flush abdominal aortogram and selective arteriograms showed no angiographic evidence of active bleed at this time as discussed above. Findings discussed via phone with Dr. Cadet at the completion of this study on . Please see the report above for all other findings and details. Cc: Jemal Cadet MD [facility]
[2016-03-26 19:34] LABS: MEAN CORPUSCULAR HEMOGLOBIN 29.2 pg (27.0-33.0); MEAN CORPUSCULAR HGB CONC 32.1 g/dl (32.0-36.5); RED CELL DISTRIBUTION WIDTH 16.3 % (11.5-14.5); WHITE BLOOD COUNT 19.1 K/mm3 (4.0-10.0)
[2016-03-26] MEDS: ESCITALOPRAM OXALATE 10 MG TAB (LEXAPRO) PO SCH (21:21)
[2016-03-27] VITALS (11 sets, daily range): BP systolic 115–175; BP diastolic 66–86
[2016-03-27] MEDS: MORPHINE PCA 1MG/ML 100ML CADD IV PRN (00:57)
[2016-03-27 06:04] LABS: MEAN CORPUSCULAR HEMOGLOBIN 28.9 pg (27.0-33.0); MEAN CORPUSCULAR HGB CONC 30.7 g/dl (32.0-36.5); PLATELET COUNT, AUTOMATED 282 k/mm3 (150-450); RED CELL DISTRIBUTION WIDTH 16.5 % (11.5-14.5); WHITE BLOOD COUNT 16.7 K/mm3 (4.0-10.0)
[2016-03-27 06:10] LABS: ANION GAP 6 MEQ/L (8-16); BLOOD UREA NITROGEN 12 MG/DL (7-18); CALCIUM LEVEL 7.5 MG/DL (8.5-10.1); CARBON DIOXIDE LEVEL 29 MEQ/L (21-32); CHLORIDE LEVEL 102 MEQ/L (98-107); CREATININE FOR GFR 1.04 MG/DL (0.70-1.30); GLOMERULAR FILTRATION RATE > 60.0 (>60); GLUCOSE, FASTING 85 MG/DL (70-105); POTASSIUM SERUM 3.9 MEQ/L (3.5-5.1); SODIUM LEVEL 137 MEQ/L (136-145)
[2016-03-27] MEDS: SLF 3 ML SYR IV SCH ×2 (06:22→14:24)
[2016-03-27 07:24] LABS: ANISOCYTOSIS 1+; EOSINOPHILS 5 % (0-5); NUCLEATED RED BLOOD CELL 2 % (0-0)
[2016-03-27] MEDS: DOCUSATE SODIUM 100 MG CAP PO SCH ×2 (09:15→20:10)
[2016-03-27] MEDS: PANTOPRAZOLE 40MG TAB (PROTONIX) PO SCH (09:15)
[2016-03-27] MEDS: ESCITALOPRAM OXALATE 10 MG TAB (LEXAPRO) PO SCH (20:10)
[2016-03-27] MEDS: NS 1,000 ML IV SCH (21:00)
[2016-03-28] VITALS: BP 146/82
[2016-03-28 07:13] LABS: BASO % 0.2 % (0.0-1.0); EOS # 0.6 K/mm3 (0.0-0.50); EOS % 4.9 % (0.0-3.0); LARGE UNSTAINED CELL # 0.2 K/mm3 (0.0-0.4); LARGE UNSTAINED CELL % 1.2 % (0.0-4.0); LYMPH # 0.7 K/mm3 (1.5-4.5); LYMPH % 5.5 % (24.0-44.0); MEAN CORPUSCULAR HEMOGLOBIN 29.8 pg (27.0-33.0); MEAN CORPUSCULAR HGB CONC 32.7 g/dl (32.0-36.5); MONO # 0.6 K/mm3 (0.0-0.8); MONO % 4.4 % (0.0-5.0); NEUTROPHILS # 10.7 K/mm3 (1.8-7.7); NEUTROPHILS % 83.7 % (36.0-66.0); PLATELET COUNT, AUTOMATED 310 k/mm3 (150-450); RED CELL DISTRIBUTION WIDTH 15.6 % (11.5-14.5); WHITE BLOOD COUNT 12.8 K/mm3 (4.0-10.0)
[2016-03-28 07:15] LABS: ANION GAP 8 MEQ/L (8-16); BLOOD UREA NITROGEN 10 MG/DL (7-18); CARBON DIOXIDE LEVEL 28 MEQ/L (21-32); CHLORIDE LEVEL 103 MEQ/L (98-107); GLOMERULAR FILTRATION RATE > 60.0 (>60); GLUCOSE, FASTING 86 MG/DL (70-105); POTASSIUM SERUM 3.9 MEQ/L (3.5-5.1); SODIUM LEVEL 139 MEQ/L (136-145)
[2016-03-28 09:00] VITALS: BP 148/88
[2016-03-28] MEDS ORDERED: SENNA 8.6 MG TAB (SENOKOT) PO SCH (09:00)
[2016-03-28] MEDS: DOCUSATE SODIUM 100 MG CAP PO SCH (09:16)
[2016-03-28] MEDS: PANTOPRAZOLE 40MG TAB (PROTONIX) PO SCH (09:16)
[2016-03-28 13:57] VITALS: BP 160/88
[2016-03-28] MEDS ORDERED: NORC5TAB PO (16:59)
[2016-03-28 17:13] VITALS: BP 150/82
--- NOTE | 2016-04-09 18:13 | DSES ---
DATE OF ADMISSION: 03/23/2016 DATE OF DISCHARGE: 03/28/2016 ADMISSION DIAGNOSIS: Extensive retroperitoneal and abdominal wall hematoma. 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 On Friday03/17/2016, while working out, he noticed a little tweak in the left flank about at the edge of the rib cage. He described this as a sensation of relatively mild muscle pulling and so laid off his exercise program for a day or two. He was doing some heavier lifting on evening 03/21/2016. He reports that he was well warmed up and was in the third set of repetitions when he felt a definite painful pull in the left flank at the inferior edge of the rib cage. He stopped lifting at that point and used some warm or cold compresses and some Bengay on the area and rested. On Friday03/22/2016, he had some persistent discomfort and by 03/23/2016, he noted he even more pain. This started more severely in the morning of 03/23/2016 and seemed to extend down the entire length of his left flank and into his left lower quadrant. When he tried getting off of his sofa later in the day, the discomfort was severe and he presented to the emergency department in the early afternoon for evaluation. He was mildly tachycardiac when he first presented. A CT scan of the abdomen and pelvis showed a definite hematoma involving the left flank muscles. This extended into the retroperitoneum posteriorly and also tracked down through the abdominal wall toward the pelvis. A CT scan of the chest was done which showed no extension of the bleeding into the chest. A repeat CT scan of the abdomen and pelvis was done with IV contrast. This confirmed the hematoma but did suggest a small vascular blush at the inferior edge of the rib cage on the left laterally suggesting some ongoing bleeding. The patient became diaphoretic and had a transient episode of syncope while sitting in a wheelchair following his scan. He was placed supine and recovered rapidly and I was asked to evaluate the patient regarding his hematoma with apparent bleeding. HOSPITAL COURSE: At the time of admission, review of his CT suggested a very large hematoma which I estimated might include a liter of blood. Certainly estimating the amount of blood loss was inexact but his hematoma was quite extensive. He was admitted to the intensive care unit and kept on bedrest. He received IV hydration and was closely monitored. By 03/24/2016, he felt somewhat better. His hematocrit in the emergency department had been 39% and later in the evening after additional hydration it was 29%. By 03/24/2016, in the morning, his hematocrit had fallen to 25%. He did note less pain. He was allowed to take a diet. On 03/25/2016, it was noted that his hematocrit had fallen to 22% and he complained of more pain. He remained mildly tachycardiac to approximately 115. The patient and I discussed the drop in his hematocrit and I advised transfusion as there was no cushion in his hematocrit to allow safe continued monitoring and given the uncertainty of additional bleeding. He received two units of packed red blood cells on 03/25/2016. Following this, his hematocrit was only to 22%. He received two additional units of packed red blood cells. He had less pain. Patient-controlled analgesia (PAPER TWISTER) that he was using showed decreased use of morphine. I spoke with Dr. Minh Gutierrez of interventional radiology on 03/26/2016 and he recommended proceeding with an angiogram to look for the source of the bleeding and potentially embolize the involved vessel. Therefore, he underwent arteriography on 03/26/2016 which did not identify a source of bleeding or even an abnormal vessel. The patient felt better on 03/27/2016 with decreased pain. It was noted that his hematocrit had risen slightly to 25.8. His electrolytes remained good. He was transferred to a medical/surgical floor from the intensive care unit. The patient stopped using the PAPER TWISTER on 03/28/2016. He was eating well and having bowel movements. His hematocrit was at 24%. He had developed significant bruising of the left flank and extending down into the left lower quadrant and groin. The patient and I discussed his progress at that point and he was discharged home on 03/28/2016. FINAL DIAGNOSES: 1. Extensive left flank, abdominal wall, and retroperitoneal hematoma secondary to musculoskeletal injury from weight lifting. 2. Anemia secondary to blood loss. PROCEDURES PERFORMED: 1. Transfusion of four units of packed red blood cells. 2. Abdominal aortogram, selective left T9 and T10 intercostal arteriograms, and selective inferior phrenic and splenic arteriograms. DISPOSITION: The patient was discharged home on 03/28/2016. He was counseled that he remained anemic and that he would probably not have the same level of stamina that he would usually have. He was advised to move slowly and be cognizant of the possibility of lightheadedness. He was allowed to shower as desired. He was to return to the emergency department for return of severe pain, lightheadedness, fevers, or chills. He was to followup with me in my office in 7-10 days. He was provided a prescription for some Horseheads to take on an as-needed basis for pain. He was to continue his escitalopram 10 mg daily. He was to stop the ibuprofen which he had been taking.
== END 2016-03-28 17:35 | disposition home or self-care (01) | DRG 254 ==
LOC: M ED 13:15 → M ICU 18:10 → M ED INP 18:11 → M ICU 19:50 → M PED 03-27 11:00
PROVIDERS: ADMIT Surgery; ATTEND Surgery
PROC: 30253N1 (ICD-10-PCS; 2016-03-25)
PROC: B400YZZ Plain Radiography of Abdominal Aorta using Other Contrast (ICD-10-PCS; principal; 2016-03-26)
PROC: B30 Imaging, Upper Arteries, Plain Radiography (ICD-10-PCS; 2016-03-26)
PROC: B40 Imaging, Lower Arteries, Plain Radiography (ICD-10-PCS; 2016-03-26)
DX: S36.892A Contusion of other intra-abdominal organs, initial encounter (principal); D62 Acute posthemorrhagic anemia; Z87.891 Personal history of nicotine dependence; Y93.B3 Activity, free weights; Y92.39 Other specified sports and athletic area as the place of occurrence of the external cause; X50.0XXA Overexertion from strenuous movement or load, initial encounter

== ENCOUNTER → 2016-05-01 | Outpatient (CLI) | payer OTHER ==
[~2016-05-01] MED LIST: ESCI10TA2 PO; IBUP80TA PO; METH-107 PO; NORC5TAB PO
[2016-05-01 13:25] LABS: MEAN CORPUSCULAR HEMOGLOBIN 29.4 pg (27.0-33.0); MEAN CORPUSCULAR HGB CONC 32.5 g/dl (32.0-36.5); MEAN CORPUSCULAR VOLUME 90.4 fl (80.0-96.0); RED CELL DISTRIBUTION WIDTH 14.4 % (11.5-14.5)
== END ==
LOC: M WUC 11:13
PROVIDERS: ATTEND Surgery
DX: K66.1 Hemoperitoneum (principal)

== ENCOUNTER → 2018-03-26 | Outpatient (REF) | payer OTHER, SELFPAY ==
[~2018-03-26] MED LIST changes: -METH-107 PO; +METH1TAB40 PO; +NORC1TAB4 PO; -NORC5TAB PO
[2018-03-26 15:40] LABS: SEMEN APPEARANCE OPAQUE (OPAQUE); SEMEN VISCOSITY VISCOUS (LIQUID); SEMEN VOLUME 1.9 ML (4.0-5.0); SEMEN WBC >1 M/ml (<=1 M/ml)
== END ==
LOC: M LAB REF 15:20
PROVIDERS: ATTEND Obstetrics & Gynecology Reproductive Endocrinology
DX: N46.9 Male infertility, unspecified (principal)